=== PATIENT | male | born 1950 | race Caucasian/White ===

== ENCOUNTER 2024-06-22 08:53 | Outpatient (AMB) | payer MEDICARE, SELFPAY ==
--- NOTE | 2024-06-22 09:03 | MHC.PC.OV ---
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 Intake Note: new patient, med refill Allergies No Known Allergies Allergy (Verified 06/22/24 09:04) Medication List - Last Reconciled 06/22/24 by Lee Ann Benavidez PA-C aspirin (Adult Low Dose Aspirin) 81 mg PO DAILY carvedilol 12.5 mg PO BID 90 days cholecalciferol (vitamin D3) 25 mcg PO DAILY coenzyme Q10 (CoQ-10) 200 mg PO DAILY donepezil 5 mg PO DAILY finasteride mg PO gabapentin mg PO lisinopril 10 mg PO DAILY mecobalamin (vitamin B12) (B12 Active) 1,000 mcg PO DAILY rosuvastatin 20 mg PO BEDTIME tamsulosin 0.4 mg PO DAILY Tobacco use date assessed: 06/22/24 Fall risk assessment: 1 Fall in past year Last assessed Fall Risk: 06/22/24 Dental Screening Dental Screen Date: 06/22/24 Did you have a dental visit in the last 12 months?: Yes Did you have a dental problem in the last 6 months where you did not have access to dental care?: No Was dental information given to patient?: Patient has dentist HPI 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 He last saw Dr. Fernandes a year ago. No notes yet available. He states that he just signed a release yesterday. CV: Blood pressure today in the office is 110/60. He is on lisinopril 10 mg daily, carvedilol 12.5 mg twice a day. He takes a baby aspirin. Cholesterol is controlled with Crestor 20 mg. Takes Co Q10 as well which helps him tolerate statins. Follows with [facility] cardiology and had an echo this am to monitor the aneurysm. Appointment booked later this month. Neuro: On Aricept 5 mg daily. He states that he had testing but does not know who did the testing or where it was. He thinks Dr. Fernandes started on the aricept. He does feel that he is getting more forgetful. He is accompanied today by daughter. -he states this memory loss has been a gradual change. He can not tell me when it started. His brother was diagnosed with dementia. He still drives and lives alone. He is able to take his meds and sometimes forgets afternoon dosage. He is getting frustrated more easily with not remembering things from the last week or month. He states it is very hard to describe. He does not have a neurologist. Uro: On Flomax and finasteride for bph and follows with Dr. Triana. Musculoskeletal: Follows in [place] with Dr. Deal for lumbar pain. Trying gabapentin which is helpful. Colonoscopy: states it was done this last year and they told him not to come back. [facility] Medical History (Updated 06/22/24 @ 12:03 by Lee Ann Benavidez PA-C) High blood pressure Family History (Updated 06/22/24 @ 09:32 by Joan Herzog) Father Asthma High blood pressure Diabetes Cancer Mother Cancer Social History (Updated 06/22/24 @ 09:13 by Joan Herzog) [facility] Tobacco Use Status: Former Tobacco user e-Cigarette/Vaping Use: Never Used Second Hand Smoke Exposure: No service: No Current occupational status: retired Current occupational exposures/hazards: No Cognitive needs: No Hearing needs: Yes Vision needs: No Questionnaire Thrive Questionnaire Date Thrive assessed: 06/22/24 I am a: Patient What is your living situation today?: I have a steady place to live Within the past 12 months, did the food you bought not last and you didn't have the money to get more?: Never true Within the past 12 months, did you worry whether your food would run out before you got money to buy more?: Never true Do you have trouble paying for medicines?: No Do you have trouble getting transportation to medical appointments?: No Do you have trouble paying your heating and electricity bill?: No Do you have trouble taking care of your child, family member or friend?: No Do you have trouble with day-to-day activities such as bathing, preparing meals, shopping, managing finances, etc.?: No Are you currently unemployed and looking for a job?: No Are you interested in more education?: No Please select the resources that you would like help with: None Currently or been in a relationship where the following occur: No concerns reported THRIVE Score: 0 AUDIT C Alcohol Use Questionnaire (AUDIT-C) 1. How often do you have a drink containing alcohol?: 4 or more times a week 2. How many drinks containing alcohol do you have on a typical day when you are drinking?: 5 or 6 3. How often do you have six or more drinks on one occasion?: Monthly Total Score: 8 Score Reviewed/Action Taken: Yes Physical exam (Primary Care) Vital Signs: Last Vital Signs Temp 98.3 F 06/22/24 09:14 Pulse 88 06/22/24 09:14 Resp 20 06/22/24 09:14 BP 110/60 06/22/24 09:14 Pulse Ox 96 06/22/24 09:14 Oxygen Delivery Method Room Air 06/22/24 09:14 BMI result Body Mass Index 31.1 Tobacco/Smoking Status: Tobacco use Status Tobacco use date assessed 06/22/24 06/22/24 09:19 Patient Tobacco Use Status Former Tobacco user 06/22/24 09:19 e-Cigarette/Vaping Use Never Used 06/22/24 09:19 Thrive Assessment: Date of Thrive Assessment Date Thrive assessed 06/22/24 06/22/24 09:33 Currently or been in a relationship where the following occur: No concerns reported Const Orientation/consciousness: patient oriented x3 HENMT Ears: hearing grossly normal bilaterally Neck Thyroid: Thyroid normal Lymphatic: no lymphadenopathy noted Resp Auscultation: clear to auscultation bilaterally Cardio Rate: regular rate Rhythm: regular rhythm Heart sounds: S1 normal heart sound present and S2 normal heart sound present GI Inspection: Yes normal to inspection Palpation (GI): Soft to palpation and Other GI palpation findings present (nontender, no cva tenderness) Auscultation: normoactive bowel sounds Rectal Exam - Male: Yes deferred Skin General skin exam: no rashes or lesions noted Neuro General: patient oriented x3, gait normal and no focal motor deficits Assessment and Plan Assessment & Plan (1) Dementia: Code(s): F03.90 - Unspecified dementia, unspecified severity, without behavioral disturbance, psychotic disturbance, mood disturbance, and anxiety Qualifiers: Dementia type: unspecified type Dementia severity: mild Dementia behavioral or psychological symptom: unspecified whether behavioral, psychotic, or mood disturbance or anxiety Qualified Code(s): F03.A0 - Unspecified dementia, mild, without behavioral disturbance, psychotic disturbance, mood disturbance, and anxiety Plan: Referral to neurology. He [facility] to [facility] for his back and joints and would like to see them for Neurology. I have refilled the Aricept today. (2) High blood pressure: Code(s): I10 - Essential (primary) hypertension Qualifiers: Hypertension type: primary hypertension Qualified Code(s): I10 - Essential (primary) hypertension Plan: WNL. Continue current regimen. (3) Dyslipidemia: Code(s): E78.5 - Hyperlipidemia, unspecified Plan: We will check lipids and LFTs. Continue with the Crestor. (4) BPH (benign prostatic hyperplasia): Code(s): N40.0 - Benign prostatic hyperplasia without lower urinary tract symptoms Plan: I have encouraged him to get records from Dr. Triana office as well. Continue with current regimen. Plan Patient has requested records. We will follow up pending results. Advised to follow up in 3 months. Sooner if needed. Patient understands and agrees with the plan. Orders: Orders Comprehensive [place]. Panel Fast Today E78.5 - Hyperlipidemia, unspecified, F03.90 - Unspecified dementia, unspecified severity, without behavioral disturbance, psychotic disturbance, mood disturbance, and anxiety, I10 - Essential (primary) hypertension, N40.0 - Benign prostatic hyperplasia without lower urinary tract symptoms TSH reflex Free T4 Today E78.5 - Hyperlipidemia, unspecified, F03.90 - Unspecified dementia, unspecified severity, without behavioral disturbance, psychotic disturbance, mood disturbance, and anxiety, I10 - Essential (primary) hypertension, N40.0 - Benign prostatic hyperplasia without lower urinary tract symptoms Complete Blood Count Auto Diff Today E78.5 - Hyperlipidemia, unspecified, F03.90 - Unspecified dementia, unspecified severity, without behavioral disturbance, psychotic disturbance, mood disturbance, and anxiety, I10 - Essential (primary) hypertension, N40.0 - Benign prostatic hyperplasia without lower urinary tract symptoms Lipid Panel Today E78.5 - Hyperlipidemia, unspecified, F03.90 - Unspecified dementia, unspecified severity, without behavioral disturbance, psychotic disturbance, mood disturbance, and anxiety, I10 - Essential (primary) hypertension, N40.0 - Benign prostatic hyperplasia without lower urinary tract symptoms Referrals Neurology Referral F03.90 - Unspecified dementia, unspecified severity, without behavioral disturbance, psychotic disturbance, mood disturbance, and anxiety Medications: New donepezil 5 mg PO DAILY 90 tabs 3RF lisinopril 10 mg PO DAILY 90 tabs 3RF rosuvastatin 20 mg PO BEDTIME 90 tabs 3RF Refilled carvedilol 12.5 mg PO BID 180 tabs 3RF 90 days Coding Level of Care Code New Pt Level 4 (50016) Complex EM visit Add On G2211 Diagnoses Mild dementia, unspecified dementia type, unspecified whether behavioral, psychotic, or mood disturbance or anxiety F03.A0 Dementia type: unspecified type Dementia severity: mild Dementia behavioral or psychological symptom: unspecified whether behavioral, psychotic, or mood disturbance or anxiety Primary hypertension I10 Hypertension type: primary hypertension Dyslipidemia E78.5 BPH (benign prostatic hyperplasia) N40.0
[2024-06-22 09:14] VITALS: BP 110/60; PULSE 88; RESP 20; TEMP 36.8; O2SAT 96; BMI 31.1
== END 2024-06-22 10:05 | disposition home or self-care (01) ==
PROVIDERS: PCP Physician Assistant; Visit Provider Physician Assistant
DX: F03.A0 Unspecified dementia, mild, without behavioral disturbance, psychotic disturbance, mood disturbance, and anxiety (principal); I10 Essential (primary) hypertension; E78.5 Hyperlipidemia, unspecified; N40.0 Benign prostatic hyperplasia without lower urinary tract symptoms
CPT/HCPCS: 99204; G2211

== ENCOUNTER 2024-07-07 07:32 | Outpatient (REF) | payer MEDICARE, SELFPAY ==
[2024-07-07 09:58] LABS: MANUAL DIFF FLAG NO
[2024-07-07 10:06] LABS: Basophils Percent Auto 0.3 % (0-2); Eosinophils Absolute Auto 0.1 X10*3/uL (0.0-0.4); Eosinophils Percent Auto 1.9 % (0-4); Hematocrit 45.7 % (42.0-52.0); Hemoglobin 15.4 g/dl (14.0-18.0); Imm Gran Abs Auto 0.02 X10*3/uL (0.00-0.03); Imm Gran Pct Auto 0.3 % (0.0-0.4); Lymphocytes Absolute Auto 1.2 X10*3/uL (1.2-4.9); Lymphocytes Percent Auto 20.2 % (20-40); Mean Corpuscular HGB Conc 33.7 g/dl (31.0-36.0); Mean Corpuscular Hemoglobin 29.8 pg (27.0-33.0); Mean Corpuscular Volume 88.4 fL (80.0-98.0); Mean Platelet Volume 9.7 fL (9.4-12.4); Monocytes Absolute Auto 0.6 X10*3/uL (0.1-1.2); Monocytes Percent Auto 9.8 % (2-11); Neutrophils Percent Auto 67.5 % (45-73); Platelet Count 219 X10*3/uL (160-400); Red Blood Count 5.17 X10*6/uL (4.60-5.80); Red Cell Distribution Width 13.5 % (11.0-16.0); White Blood Count 5.9 X10*3/uL (4.8-10.8)
[2024-07-07 10:45] LABS: Alanine Aminotransferase 17 U/L (0-40); Albumin Level 4.1 g/dL (3.5-5.0); Alkaline Phosphatase 58 U/L (39-117); Anion Gap 9 (12-20); Aspartate Amino Transferase 18 U/L (5-37); Bilirubin Total 0.3 mg/dL (0.0-1.0); Blood Urea Nitrogen 6 mg/dL (9-16); Calcium 9.5 mg/dL (8.4-10.2); Carbon Dioxide 28 mmol/L (22-29); Chloride 107 mmol/L (96-108); Cholesterol 96 mg/dL (<200); Estimated Glomerular Filt Rate > 60; Glucose Fasting 91 mg/dL (60-99); HDL Cholesterol 46 mg/dL (>40); LDL Cholesterol Calculated 31 mg/dL (<100); Potassium 4.1 mmol/L (3.3-5.1); Sodium 140 mmol/L (135-145); Total Protein 7.3 g/dL (6.5-8.0); Triglycerides 97 mg/dL (<150)
[2024-07-07 10:50] LABS: TSH reflex Free T4 2.01 uIU/mL (0.32-4.0)
== END 2024-07-07 07:33 | disposition home or self-care (01) ==
LOC: HO.HMGCLDS 07:32
PROVIDERS: PCP Internal Medicine; Visit Provider Physician Assistant
DX: F03.90 Unspecified dementia, unspecified severity, without behavioral disturbance, psychotic disturbance, mood disturbance, and anxiety (principal); I10 Essential (primary) hypertension; E78.5 Hyperlipidemia, unspecified; N40.0 Benign prostatic hyperplasia without lower urinary tract symptoms
CPT/HCPCS: 36415; 80053; 80061; 84443; 85025

== ENCOUNTER 2024-09-27 08:40 | Outpatient (AMB) | payer MEDICARE, SELFPAY ==
--- NOTE | 2024-09-27 08:46 | A.OFFPC_ITS ---
Vital Signs 09/27/24 08:49 Height 5 ft 9.45 in Weight 211 lb 6 oz BMI 30.8 BP 134/58 L Blood Pressure Location Lt brachial Position Sitting Pulse 81 Pulse Source Pulse Oximeter Pulse Oximetry (%) 94 Oxygen Delivery Method Room Air Intake Visit Reasons: med changes Intake Note: Follow up medication changes. Jalousies Installer Required: No Allergies No Known Allergies Allergy (Verified 09/27/24 08:47) Medication List - Last Reconciled 09/27/24 by Lee Ann Benavidez PA-C aspirin (Adult Low Dose Aspirin) 81 mg PO DAILY carvedilol 12.5 mg PO BID 90 days cholecalciferol (vitamin D3) 25 mcg PO DAILY coenzyme Q10 (CoQ-10) 200 mg PO DAILY donepezil 5 mg PO DAILY finasteride mg PO gabapentin mg PO lisinopril 10 mg PO DAILY mecobalamin (vitamin B12) (B12 Active) 1,000 mcg PO DAILY rosuvastatin 20 mg PO BEDTIME tamsulosin 0.4 mg PO DAILY Tobacco use date assessed: 06/22/24 Dental Screening Dental Screen Date: 06/22/24 HPI med changes HPI Details Patient is a 74-year-old with a significant past medical history of dementia, ascending aortic aneurysm, hypertension, hyperlipidemia, BPH , vitamin-D deficiency and vitamin B12 deficiency presenting today for a follow up. CV: Blood pressure today in the office is 134/58. He is on lisinopril 10 mg daily, carvedilol 12.5 mg twice a day. He takes a baby aspirin. Cholesterol is controlled with Crestor 20 mg. Takes Co Q10 as well which helps him tolerate statins. Follows with [facility] cardiology and had an echo in June 2024 monitor the aneurysm. Neuro: On Aricept 5 mg daily. He states that he had testing by his PCP including labs, MRI and he thinks he had neuropsych testing. He thinks Dr. Fernandes started on the aricept. He does feel that he is getting more forgetful. He is accompanied today by daughter. He was referred at our last visit to Neurology. Uro: On Flomax and finasteride for bph and follows with Dr. Triana. Musculoskeletal: Follows in [place] with Dr. Deal for lumbar pain. Had a cortisone injection last week and it does feel somewhat better. Trying gabapentin which is helpful. He has recently experienced some neck pain mostly on the right side last 3 weeks. It has been on and off. He says that he can p ush on 1 particular area and relieve the pain. GI: For the last year he has had some loose stools. Denies any episodes of constipation. No rectal bleeding. Up-to-date on colonoscopy in January and [place] that they told him to not come back because it was normal. He has not tried anything for his diet or making any diet changes. He eats fast food every night for dinner because he does not like cook. He states that last night he had a double cheeseburger from [employer]. He does not know if this is triggering the looser stools. Denies any actual diarrhea. No recent antibiotic use. No recent travel. No weight loss. No abdominal pain. He states that his stool consistency has changed in that is his only concern. colonoscopy:02/07/24 [facility] Medical History (Updated 09/27/24 @ 11:34 by Lee Ann Benavidez PA-C) High blood pressure Family History Father Asthma High blood pressure Diabetes Cancer Mother Cancer Social History (Updated 09/27/24 @ 08:48 by Jessie Stratton CMA) [facility] Alcohol intake: current Patient Tobacco Use Status: Former Tobacco user e-Cigarette/Vaping Use: Never Used Second Hand Smoke Exposure: No service: No Current occupational status: retired Current occupational exposures/hazards: No Cognitive needs: No Hearing needs: Yes Vision needs: No Questionnaire PHQ-9 Over the last 2 weeks, how often have you been bothered by any of the following problems? 1. Little interest or pleasure in doing things: more than half the days 2. Feeling down, depressed, or hopeless: several days 3. Trouble falling or staying asleep, or sleeping too much: not at all 4. Feeling tired or having little energy: not at all 5. Poor appetite or overeating: not at all 6. Feeling bad about yourself - or that you are a failure or have let yourself or your family down: not at all 7. Trouble concentrating on things, such as reading the newspaper or watching television: not at all 8. Moving or speaking so slowly that other people could have noticed. Or the opposite - being so fidgety or restless that you have been moving around a lot more than usual: not at all 9. Thoughts that you would be better off or of hurting yourself in some way: not at all Total score: 3 Source: Developed by Drs. Sarabjit Ac, Susie Geiger, Tahir Clifford and colleagues, with an educational kevin from [employer]. Thrive Questionnaire Date Thrive assessed: 06/22/24 I am a: Patient What is your living situation today?: I have a steady place to live Within the past 12 months, did the food you bought not last and you didn't have the money to get more?: Never true Within the past 12 months, did you worry whether your food would run out before you got money to buy more?: Never true Do you have trouble paying for medicines?: No Do you have trouble getting transportation to medical appointments?: No Do you have trouble paying your heating and electricity bill?: No Do you have trouble taking care of your child, family member or friend?: No Do you have trouble with day-to-day activities such as bathing, preparing meals, shopping, managing finances, etc.?: No Are you currently unemployed and looking for a job?: No Are you interested in more education?: No Please select the resources that you would like help with: None Currently or been in a relationship where the following occur: No concerns reported THRIVE Score: 0 AUDIT C Alcohol Use Questionnaire (AUDIT-C) 1. How often do you have a drink containing alcohol?: 4 or more times a week 2. How many drinks containing alcohol do you have on a typical day when you are drinking?: 3 or 4 3. How often do you have six or more drinks on one occasion?: Monthly Total Score: 7 TUNDE-7 AMB Questionnaire TUNDE-7 Feeling nervous, anxious, or on edge: 0 = Not at all Not being able to stop or control worryin = Not at all Worrying too much about different things: 0 = Not at all Trouble relaxin = Not at all Being so restless that it is hard to sit still: 0 = Not at all Becoming easily annoyed or irritable: 0 = Not at all Feeling afraid as if something awful might happen: 0 = Not at all Total TUNDE-7 score (0-4 normal; 5-9 mild; 10-14 moderate; 15-21 severe): 0 Source: Developed by Drs. Sarabjit Ac, Susie Geiger, Tahir Clifford and colleagues, with an educational kevin from [employer]. Physical exam (Primary Care) Vital Signs: Last Vital Signs Pulse 81 09/27/24 08:49 BP 134/58 L 09/27/24 08:49 Pulse Ox 94 09/27/24 08:49 Oxygen Delivery Method Room Air 09/27/24 08:49 BMI result Body Mass Index 30.8 Tobacco/Smoking Status: Tobacco use Status Tobacco use date assessed 06/22/24 09/27/24 08:52 Patient Tobacco Use Status Former Tobacco user 09/27/24 08:52 e-Cigarette/Vaping Use Never Used 09/27/24 08:52 PHQ-9: PHQ-9 Score PHQ-9: Total score 3 09/27/24 09:16 Thrive Assessment: Date of Thrive Assessment Date Thrive assessed 06/22/24 09/27/24 08:52 Currently or been in a relationship where the following occur: No concerns reported Const Orientation/consciousness: patient oriented x3 HENMT Ears: hearing grossly normal bilaterally Neck Neck: Yes normal visual inspection Thyroid: Thyroid normal Lymphatic: no lymphadenopathy noted Resp Auscultation: clear to auscultation bilaterally Cardio Rate: regular rate Rhythm: regular rhythm Heart sounds: S1 normal heart sound present and S2 normal heart sound present GI Inspection: Yes normal to inspection Palpation (GI): Soft to palpation and Other GI palpation findings present (nontender, no cva tenderness) Auscultation: normoactive bowel sounds Rectal Exam - Male: Yes deferred Back/Spine/Pelvis Cervical Spine: cervical ROM normal, cervical muscular tenderness and cervical spasm (Of the right trapezius) Skin General skin exam: no rashes or lesions noted Neuro General: patient oriented x3, gait normal and no focal motor deficits Results Reviewed Results Reviewed: Laboratory Tests 07/07/24 07:38 WBC 5.9 RBC 5.17 Hgb 15.4 Hct 45.7 Plt Count 219 Sodium 140 Potassium 4.1 Chloride 107 Carbon Dioxide 28 Anion Gap 9 L BUN 6 L Creatinine 0.78 Estimated GFR > 60 Fasting Glucose 91 Calcium 9.5 Total Bilirubin 0.3 AST 18 ALT 17 Alkaline Phosphatase 58 Total Protein 7.3 Albumin 4.1 Triglycerides 97 Cholesterol 96 LDL Cholesterol, Calc 31 HDL Cholesterol 46 TSH 2.01 Coding Level of Care Code Est Pt Level 4 (36527) Complex EM visit Add On G2211 Diagnoses Primary hypertension I10 Hypertension type: primary hypertension Dyslipidemia E78.5 BPH (benign prostatic hyperplasia) N40.0 Lower urinary tract symptom presence: symptoms present Increased urinary frequency R35.0 Loose stools R19.5 Neck pain M54.2 Assessment & Plan Assessment & Plan (1) High blood pressure: Code(s): I10 - Essential (primary) hypertension Category: Medical Qualifiers: Hypertension type: primary hypertension Qualified Code(s): I10 - Essential (primary) hypertension Plan: Continue current regimen (2) Dyslipidemia: Code(s): E78.5 - Hyperlipidemia, unspecified Category: Medical Plan: Continue current regimen (3) BPH (benign prostatic hyperplasia): Code(s): N40.0 - Benign prostatic hyperplasia without lower urinary tract symptoms Category: Medical Qualifiers: Lower urinary tract symptom presence: symptoms present Plan: Has had some increased frequency over the last 6 months. Urine in kidney function ordered today. Advised patient to follow up with Dr. Triana. Has an appointment booked later this month but advised that he could call them. (4) Increased urinary frequency: Code(s): R35.0 - Frequency of micturition Category: Medical Plan: As above (5) Loose stools: Code(s): R19.5 - Other fecal abnormalities Category: Medical Plan: Stool studies ordered. Labs ordered. Advised to try a fiber supplement. Also advised to stop eating fried fast food every night. (6) Neck pain: Code(s): M54.2 - Cervicalgia Category: Medical Plan: X-ray ordered. Referral to physical therapy placed. Muscle relaxant ordered to use as needed. Advised to avoid drinking or driving while taking the muscle relaxant as it may cause sedation. Orders: Orders UA CC w/rflx Micro + Cult Today E78.5 - Hyperlipidemia, unspecified, I10 - Essential (primary) hypertension, N40.0 - Benign prostatic hyperplasia without lower urinary tract symptoms, R35.0 - Frequency of micturition, Z13.220 - Encounter for screening for lipoid disorders Comprehensive Met. Panel Today E78.5 - Hyperlipidemia, unspecified, I10 - Essential (primary) hypertension, N40.0 - Benign prostatic hyperplasia without lower urinary tract symptoms, R35.0 - Frequency of micturition OBSX3 Today E78.5 - Hyperlipidemia, unspecified, I10 - Essential (primary) hypertension, N40.0 - Benign prostatic hyperplasia without lower urinary tract symptoms, R35.0 - Frequency of micturition Transglutaminase Ab IgG Today R19.5 - Other fecal abnormalities Immunoglobulin A Today R19.5 - Other fecal abnormalities PT Evaluation and Treatment Today M54.2 - Cervicalgia TSH reflex Free T4 Today E78.5 - Hyperlipidemia, unspecified, I10 - Essential (primary) hypertension, N40.0 - Benign prostatic hyperplasia without lower urinary tract symptoms, R35.0 - Frequency of micturition Endomysial IgA rflx Titer Today R19.5 - Other fecal abnormalities XR cervical spine 3V Today M54.2 - Cervicalgia Medications: New cyclobenzaprine 10 mg PO BEDTIME 30 days PRN 30 tabs 0RF muscle spasm
[2024-09-27 08:49] VITALS: BP 134/58; PULSE 81; O2SAT 94; BMI 30.8
== END 2024-09-27 09:42 | disposition home or self-care (01) ==
LOC: HO.HMCFM 08:41
PROVIDERS: PCP Internal Medicine; Visit Provider Physician Assistant
DX: I10 Essential (primary) hypertension (principal); E78.5 Hyperlipidemia, unspecified; N40.0 Benign prostatic hyperplasia without lower urinary tract symptoms; R35.0 Frequency of micturition; R19.5 Other fecal abnormalities; M54.2 Cervicalgia

== ENCOUNTER → 2024-09-27 08:40 | Outpatient (BNVA) | payer MEDICARE, SELFPAY | PROVIDERS: PCP Internal Medicine; Visit Provider Physician Assistant | DX: I10 Essential (primary) hypertension (principal); E78.5 Hyperlipidemia, unspecified; N40.1 Benign prostatic hyperplasia with lower urinary tract symptoms; R35.0 Frequency of micturition; R19.5 Other fecal abnormalities; M54.2 Cervicalgia | CPT/HCPCS: 99212 ==

== ENCOUNTER 2024-09-27 09:51 | Outpatient (REF) | payer MEDICARE, SELFPAY ==
[2024-09-27 11:31] LABS: Appearance Urine Clear; Color Urine Yellow; Glucose Urine UA Negative (Negative); Leukocyte Esterase Urine Negative (Negative); Nitrite Urine Negative (Negative); PH 5.5 (5.0-9.0); Specific Gravity - Urine 1.015 (1.005-1.025); Urine Blood Negative (Negative); Urine Ketones Negative (Negative); Urine Protein Negative (Neg-Trace)
[2024-09-27 12:27] LABS: Alanine Aminotransferase 19 U/L (0-40); Albumin Level 4.1 g/dL (3.5-5.0); Alkaline Phosphatase 66 U/L (39-117); Anion Gap 10 (12-20); Aspartate Amino Transferase 29 U/L (5-37); Bilirubin Total 0.5 mg/dL (0.0-1.0); Blood Urea Nitrogen 12 mg/dL (9-16); Calcium 9.8 mg/dL (8.4-10.2); Carbon Dioxide 26 mmol/L (22-29); Chloride 103 mmol/L (96-108); Estimated Glomerular Filt Rate > 60; Glucose Random 101 mg/dL (60-115); Potassium 4.2 mmol/L (3.3-5.1); Sodium 135 mmol/L (135-145); Total Protein 7.4 g/dL (6.5-8.0)
[2024-09-27 12:32] LABS: TSH reflex Free T4 2.57 uIU/mL (0.32-4.0)
[2024-09-28 09:48] LABS: Immunoglobulin A 349 mg/dL (70-320)
[2024-09-28 20:24] LABS: Transglutaminase Ab IgG <1.0 U/mL
[2024-09-30 23:38] LABS: Endomysial IgA Antibody Negative (Negative)
== END 2024-09-27 09:52 | disposition home or self-care (01) ==
LOC: HO.WFDLDS 09:51
PROVIDERS: Visit Provider Physician Assistant
DX: I10 Essential (primary) hypertension (principal); E78.5 Hyperlipidemia, unspecified; N40.1 Benign prostatic hyperplasia with lower urinary tract symptoms; R35.0 Frequency of micturition; R19.5 Other fecal abnormalities; Z13.220 Encounter for screening for lipoid disorders
CPT/HCPCS: 36415; 80053; 81003; 82784; 84443; 86231; 86364; 99212

== ENCOUNTER 2024-09-29 11:05 | Outpatient (REF) | payer MEDICARE, SELFPAY | END 2024-09-29 11:06 | disposition home or self-care (01) | LOC: HO.HMGCX 11:05 | PROVIDERS: PCP Internal Medicine; Visit Provider Physician Assistant | DX: M54.2 Cervicalgia (principal) | CPT/HCPCS: 72040 ==

== ENCOUNTER 2024-11-13 10:00 | Outpatient (RCR) | payer MEDICARE, SELFPAY ==
--- NOTE | 2024-10-11 11:41 | MHC.PT.EP ---
[facility] [place] [facility] [place] [facility] [place] [facility] [address] D[address] [place] [address] [phone] F: [phone] F: [phone] F: [phone] F: [phone] Physical Therapy Plan of Care Date of Evaluation: 10/11/24 Date of Surgery: Diagnosis: This is a 74yo male presenting to skilled PT with a script for cervicalgia. Assessment: This is a 74yo male presenting to skilled PT with a script for cervicalgia. Patient reporting that he has had R sided neck and UT pain for about 3 months now. He did not have any injury that he notes. It has been on and off. Pain is stiffness. He does not recall positions that trigger it or make it feel better. He has been taking gabapentin for the symptoms. Denies FIGUEREDO's and dizziness. 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 Of note, he had shoulder surgery on the R in early 1999' but is unsure what it was. Also of note he is being followed in [place] with Dr. Deal for lumbar pain and had a cortisone injection recently. Assessment reveals pain that ranges from up to a 4/10 at the worst. Patient demos decreased cervical ROM, strength of B shoulder's (L is actually worse than the R), TTP at surrounding levator scap and UT's and impaired posture with increased trunk flexion, thoracic kyphosis, forward head and rounded shoulders. Based on functional limitations, impaired QOL and pain tolerance patient is a good candidate for skilled PT 2x/wk for 4wks. 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 Manual therapy to restore motion and function. Therapeutic exercise to improve strength and flexibility. Neuromuscular re-education for posture and balance. Therapeutic activities to return to functional activities of daily living. Electronically signed by: Karen Cedeno PT Please sign and return to therapist. Thank you for your referral.
== END 2024-12-15 08:26 | disposition home or self-care (01) ==
LOC: HO.PTCHIC 10:00
PROVIDERS: PCP Internal Medicine; Visit Provider Physician Assistant
DX: M54.2 Cervicalgia (principal)
CPT/HCPCS: 97014; 97110; 97140; 97162

== ENCOUNTER 2025-01-03 09:26 | Outpatient (AMB) | payer MEDICARE, SELFPAY ==
--- NOTE | 2025-01-03 09:35 | A.OFFPC_ITS ---
Vital Signs 01/03/25 09:37 Height 5 ft 9.45 in Weight 215 lb 4 oz BMI 31.4 BP 110/68 Blood Pressure Location Lt brachial Position Sitting Respiration 18 Pulse 87 Pulse Source Pulse Oximeter Pulse Oximetry (%) 93 Oxygen Delivery Method Room Air Intake Visit Reasons: bp labs Intake Note: Follow up htn Accompanied by: Son Allergies No Known Allergies Allergy (Verified 09/27/24 08:47) Medication List - Last Reconciled 01/03/25 by Lee Ann Benavidez PA-C aspirin (Adult Low Dose Aspirin) 81 mg PO DAILY carvedilol 12.5 mg PO BID 90 days cholecalciferol (vitamin D3) 25 mcg PO DAILY coenzyme Q10 (CoQ-10) 200 mg PO DAILY cyclobenzaprine 10 mg PO BEDTIME PRN 30 days donepezil 5 mg PO DAILY finasteride mg PO gabapentin mg PO lisinopril 10 mg PO DAILY mecobalamin (vitamin B12) (B12 Active) 1,000 mcg PO DAILY rosuvastatin 20 mg PO BEDTIME tamsulosin 0.4 mg PO DAILY Tobacco use date assessed: 01/03/25 Dental Screening Dental Screen Date: 06/22/24 HPI bp labs HPI Details History of Present Illness Patient is a 74-year-old with a significant past medical history of dementia, ascending aortic aneurysm, hypertension, hyperlipidemia, BPH , vitamin-D deficiency and vitamin B12 deficiency presenting today for a follow up. CV: Blood pressure today in the office is 110/68. He is on lisinopril 10 mg daily, carvedilol 12.5 mg twice a day. He takes a baby aspirin. Cholesterol is controlled with Crestor 20 mg. Takes Co Q10 as well which helps him tolerate statins. Follows with [facility] and had an echo in June 2024 monitor the aneurysm. Neuro: On Aricept 5 mg daily. He states that he is stable. No changes. His son is with him today and states that he is stable and sharp. -His son does state sometimes he is off balance getting up from sitting down and sometimes with walking. He did try PT for this and has not been doing the exercises. He does not want to back to PT. He does have a cane at home and refuses walker. He is ok with getting a bar in the shower and a possible seat. He states that he has not fallen in the shower/bathroom but has had a couple falls this year. No hitting of head. States he tripped. Uro: On Flomax and finasteride for bph and follows with Dr. Triana. Musculoskeletal: Follows in [place] with Dr. Deal for lumbar pain. Using gabapentin which is helpful. Last time I saw him he was experiencing some neck pain. He did do PT for this and found it helpful. Derm: He complains today of dry flaky skin. he denies associated pruritus. He expresses an interest in obtaining either a prescription-strength cream or an efficacious [id number] product. Lifestyle instructions were given regarding the application of thick, unscented creams post-shower for maximum hydration retention. 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 colonoscopy:02/07/24 Health Maintenance - Recommendation for installing home saf ety devices such as shower chairs and handles to prevent falls. - Discussion on potential need for physi elieser therapy was raised, though deemed unnecessary at present by the patient. - Suggested usage of rich, unscented emo llient for skin hydration post-shower. Social History - Resides with his son, who assists with daily activities and healthcare decisions. - Previous employment history involves p [employer]. - Patient reports independence in mobili ty with a preference for limited use of assistive devices like canes or walkers. Review of Systems - Neurological: Denies significant cogni tive decline, occasionally disoriented on time. - Dermatological: Reports persistent dry and flaky skin, denies itchiness or lesions. Physical Exam General: Well developed, well nourished, in no acute distress. Appears stated age. Cardiac: RRR, no murmurs Lungs: clear, equal breath sounds Abdomen: soft, nontender, no CVA tenderness Extremities: no edema Neuro: alert, oriented x3, mood appropriate, occasional unsteadiness noted. Plan - Continue current management for orthos tatic instability with advisement on potentially increasing use of the cane for support. - Ordered a shower chair and grab bars t o improve home safety and reduce fall risk. - Prescribed a topical moisturizing crea m for dry skin, with preference towards non-prescription emollients given potential insurance issues with prescription. - Monitor skin condition through follow- up dermatological assessments -Continue current medications. - Encourage continued exercise routine p rovided by physical therapy to aid balance. - Systematically check on all blood work to ensure consistency in health status as per previous tests. [facility] Medical History (Updated 01/03/25 @ 10:00 by Lee Ann Benavidez PA-C) High blood pressure Family History Father Asthma High blood pressure Diabetes Cancer Mother Cancer Social History (Updated 09/27/24 @ 08:48 by Jessie Stratton CMA) Housing: Condominium Alcohol intake: current Patient Tobacco Use Status: Former Tobacco user e-Cigarette/Vaping Use: Never Used Second Hand Smoke Exposure: No service: No Current occupational status: retired Current occupational exposures/hazards: No Cognitive needs: No Hearing needs: Yes Vision needs: No Questionnaire PHQ-9 Over the last 2 weeks, how often have you been bothered by any of the following problems? 1. Little interest or pleasure in doing things: not at all 2. Feeling down, depressed, or hopeless: not at all 3. Trouble falling or staying asleep, or sleeping too much: not at all 4. Feeling tired or having little energy: not at all 5. Poor appetite or overeating: not at all 6. Feeling bad about yourself - or that you are a failure or have let yourself or your family down: not at all 7. Trouble concentrating on things, such as reading the newspaper or watching television: not at all 8. Moving or speaking so slowly that other people could have noticed. Or the opposite - being so fidgety or restless that you have been moving around a lot more than usual: not at all 9. Thoughts that you would be better off or of hurting yourself in some way: not at all Total score: 0 Depression Screening Interpretation: Negative Depression Screening Done: Yes 69652 - PHQ-9 Billing: Yes Source: Developed by Drs. Sarabjit Ac, Susie Geiger, Tahir Clifford and colleagues, with an educational kevin from [employer]. Thrive Questionnaire Date Thrive assessed: 06/22/24 I am a: Patient What is your living situation today?: I have a steady place to live Within the past 12 months, did the food you bought not last and you didn't have the money to get more?: Never true Within the past 12 months, did you worry whether your food would run out before you got money to buy more?: Never true Do you have trouble paying for medicines?: No Do you have trouble getting transportation to medical appointments?: No Do you have trouble paying your heating and electricity bill?: No Do you have trouble taking care of your child, family member or friend?: No Do you have trouble with day-to-day activities such as bathing, preparing meals, shopping, managing finances, etc.?: No Are you currently unemployed and looking for a job?: No Are you interested in more education?: No Please select the resources that you would like help with: None Currently or been in a relationship where the following occur: No concerns reported THRIVE Score: 0 AUDIT C Alcohol Use Questionnaire (AUDIT-C) 1. How often do you have a drink containing alcohol?: 2-4 times a month 2. How many drinks containing alcohol do you have on a typical day when you are drinking?: 3 or 4 3. How often do you have six or more drinks on one occasion?: Never Total Score: 3 TUNDE-7 AMB Questionnaire TUNDE-7 Feeling nervous, anxious, or on edge: 0 = Not at all Not being able to stop or control worryin = Not at all Worrying too much about different things: 0 = Not at all Trouble relaxin = Not at all Being so restless that it is hard to sit still: 0 = Not at all Becoming easily annoyed or irritable: 0 = Not at all Feeling afraid as if something awful might happen: 0 = Not at all Total TUNDE-7 score (0-4 normal; 5-9 mild; 10-14 moderate; 15-21 severe): 0 Source: Developed by Drs. Sarabjit Ac, Susie Geiger, Tahir Clifford and colleagues, with an educational kevin from [employer]. TUNDE-7 Assessment Billing TUNDE-7 Assessment Tool: TUNDE-7 Assessment 83057 Physical exam (Primary Care) Vital Signs: Last Vital Signs Pulse 87 01/03/25 09:37 Resp 18 01/03/25 09:37 BP 110/68 01/03/25 09:37 Pulse Ox 93 01/03/25 09:37 Oxygen Delivery Method Room Air 01/03/25 09:37 BMI result Body Mass Index 31.4 Tobacco/Smoking Status: Tobacco use Status Tobacco use date assessed 01/03/25 01/03/25 09:40 Patient Tobacco Use Status Former Tobacco user 01/03/25 09:40 e-Cigarette/Vaping Use Never Used 01/03/25 09:40 Depression Screening Interpretation: Negative Thrive Assessment: Date of Thrive Assessment Date Thrive assessed 06/22/24 01/03/25 09:40 Currently or been in a relationship where the following occur: No concerns reported Results Reviewed Results Reviewed: XR/XR cervical spine 3V IMPRESSION: Moderate degenerative disc disease at C6-C7 and mild degenerative disc disease at C4-C5 and C5-C6. Prominent facet arthrosis. Laboratory Tests 07/07/24 09/27/24 09/27/24 07:38 09:54 10:04 WBC 5.9 RBC 5.17 Hgb 15.4 Hct 45.7 Plt Count 219 Estimated GFR > 60 Random Glucose 101 Calcium 9.8 Total Bilirubin 0.5 AST 29 ALT 19 Alkaline Phosphatase 66 Albumin 4.1 Triglycerides 97 Cholesterol 96 LDL Cholesterol, Calc 31 HDL Cholesterol 46 TSH 2.57 Urine Color Yellow Urine Appearance Clear Urine pH 5.5 Ur Specific [place] 1.015 Urine Protein Negative Urine Glucose (UA) Negative Urine Blood Negative Coding Level of Care Code Est Pt Level 4 (49862) Complex EM visit Add On G2211 Diagnoses Balance disorder R26.89 Primary hypertension I10 Hypertension type: primary hypertension Mild dementia, unspecified dementia type, unspecified whether behavioral, psychotic, or mood disturbance or anxiety F03.A0 Dementia behavioral or psychological symptom: unspecified whether behavioral, psychotic, or mood disturbance or anxiety Dementia severity: mild Dementia type: unspecified type Dyslipidemia E78.5 Additional Codes PHQ-9 - 96267 - PHQ-9 Billing: Yes ([id number]) TUNDE-7 Assessment Billing - TUNDE-7 Assessment Tool: TUNDE-7 Assessment 07697 ([id number]) Assessment & Plan Assessment & Plan (1) Balance disorder: Code(s): R26.89 - Other abnormalities of gait and mobility Category: Medical Plan: Has had physical therapy for this and has a elicit stretches to do at home and exercises. States that he just needs to get some motivation. Does not live alone and states that he follows very infrequently. In the past year he has fallen once or twice and it has been mechanical falls. Shower bar and chair ordered today. (2) High blood pressure: Code(s): I10 - Essential (primary) hypertension Category: Medical Qualifiers: Hypertension type: primary hypertension Qualified Code(s): I10 - Essential (primary) hypertension Plan: WNL. Continue current regimen (3) Dementia: Code(s): F03.90 - Unspecified dementia, unspecified severity, without behavioral disturbance, psychotic disturbance, mood disturbance, and anxiety Category: Medical Qualifiers: Dementia behavioral or psychological symptom: unspecified whether behavioral, psychotic, or mood disturbance or anxiety Dementia severity: mild Dementia type: unspecified type Qualified Code(s): F03.A0 - Unspecified dementia, mild, without behavioral disturbance, psychotic disturbance, mood disturbance, and anxiety Plan: Stable. Son feels that he is still very sharp. (4) Dyslipidemia: Code(s): E78.5 - Hyperlipidemia, unspecified Category: Medical Plan: Well-controlled. Continue current regimen. Orders: Orders Complete Blood Count Auto Diff Today E78.5 - Hyperlipidemia, unspecified, F03.A0 - Unspecified dementia, mild, without behavioral disturbance, psychotic disturbance, mood disturbance, and anxiety, I10 - Essential (primary) hypertension, R26.89 - Other abnormalities of gait and mobility TSH reflex Free T4 Today E78.5 - Hyperlipidemia, unspecified, F03.A0 - Unspecified dementia, mild, without behavioral disturbance, psychotic disturbance, mood disturbance, and anxiety, I10 - Essential (primary) hypertension, R26.89 - Other abnormalities of gait and mobility Comprehensive Met. Panel Today E78.5 - Hyperlipidemia, unspecified, F03.A0 - Unspecified dementia, mild, without behavioral disturbance, psychotic disturba nce, mood disturbance, and anxiety, I10 - Essential (primary) hypertension, R26.89 - Other abnormalities of gait and mobility Vitamin B12 and Folate Today E78.5 - Hyperlipidemia, unspecified, F03.A0 - Unspecified dementia, mild, without behavioral disturbance, psychotic disturbance, mood disturbance, and anxiety, I10 - Essential (primary) hypertension, R26.89 - Other abnormalities of gait and mobility Magnesium Today E78.5 - Hyperlipidemia, unspecified, F03.A0 - Unspecified dementia, mild, without behavioral disturbance, psychotic disturbance, mood disturbance, and anxiety, I10 - Essential (primary) hypertension, R26.89 - Other abnormalities of gait and mobility Medications: New miscellaneous medical supply Use daily As directed 1 ea 0RF R26.89 - Other abnormalities of gait and mobility, R29.6 - Repeated falls ammonium lactate 12% 1 appl topical BID PRN 385 grams 3RF dry skin miscellaneous medical supply 1 shower bar Use daily As directed 1 ea 0RF R26.89 - Other abnormalities of gait and mobility, R29.6 - Repeated falls miscellaneous medical supply 1 shower safety chair use daily As directed 1 ea 0RF R26.89 - Other abnormalities of gait and mobility
[2025-01-03 09:37] VITALS: BP 110/68; PULSE 87; RESP 18; O2SAT 93; BMI 31.4
== END 2025-01-03 10:13 | disposition home or self-care (01) ==
PROVIDERS: PCP Physician Assistant; Visit Provider Physician Assistant
DX: R26.89 Other abnormalities of gait and mobility (principal); I10 Essential (primary) hypertension; F03.A0 Unspecified dementia, mild, without behavioral disturbance, psychotic disturbance, mood disturbance, and anxiety; E78.5 Hyperlipidemia, unspecified

== ENCOUNTER → 2025-01-03 09:26 | Outpatient (BNVA) | payer MEDICARE, SELFPAY | PROVIDERS: PCP Physician Assistant; Visit Provider Physician Assistant | DX: R26.89 Other abnormalities of gait and mobility (principal); I10 Essential (primary) hypertension; F03.A0 Unspecified dementia, mild, without behavioral disturbance, psychotic disturbance, mood disturbance, and anxiety; E78.5 Hyperlipidemia, unspecified | CPT/HCPCS: 96127; 99212 ==

== ENCOUNTER 2025-02-09 09:37 | Outpatient (REF) | payer MEDICARE, SELFPAY ==
[2025-02-09 13:31] LABS: B Type Natriuretic Peptide 214 pg/mL (<100)
[2025-02-09 14:07] LABS: Anion Gap 13 (12-20); Blood Urea Nitrogen 6 mg/dL (9-16); Calcium 9.4 mg/dL (8.4-10.2); Carbon Dioxide 23 mmol/L (22-29); Chloride 106 mmol/L (96-108); Estimated Glomerular Filt Rate > 60; Glucose Random 102 mg/dL (60-115); Potassium 4.1 mmol/L (3.3-5.1); Sodium 138 mmol/L (135-145)
== END 2025-02-09 09:38 | disposition home or self-care (01) ==
LOC: HO.HMGCLDS 09:37
PROVIDERS: PCP Physician Assistant; Visit Provider Internal Medicine Cardiovascular Disease
DX: I42.0 Dilated cardiomyopathy (principal)
CPT/HCPCS: 36415; 80048; 83880

== ENCOUNTER 2025-05-09 08:35 | Outpatient (AMB) | payer MEDICARE, SELFPAY ==
--- NOTE | 2025-05-09 08:43 | MHC.PC.OV ---
Vital Signs 05/09/25 08:49 Height 5 ft 9.45 in Weight 206 lb BMI 30.0 BP 110/62 Blood Pressure Location Lt brachial Position Sitting Respiration 14 Pulse 75 Pulse Source Pulse Oximeter Pulse Oximetry (%) 95 Oxygen Delivery Method Room Air Intake Visit Reasons: labs and meds Intake Note: Lab results and medication review. Will be starting Enstresto and Eplerenone once received from the mail. Allergies No Known Allergies Allergy (Verified 05/09/25 08:43) Medication List - Last Reconciled 05/09/25 by Lee Ann Benavidez PA-C ammonium lactate 12% 1 appl topical BID PRN aspirin (Adult Low Dose Aspirin) 81 mg PO DAILY carvedilol 12.5 mg PO BID 90 days cholecalciferol (vitamin D3) 25 mcg PO DAILY coenzyme Q10 (CoQ-10) 200 mg PO DAILY cyclobenzaprine 10 mg PO BEDTIME PRN 30 days donepezil 5 mg PO DAILY eplerenone 25 mg PO DAILY finasteride mg PO gabapentin mg PO BID mecobalamin (vitamin B12) (B12 Active) 1,000 mcg PO DAILY miscellaneous medical supply 1 shower bar Use daily As directed miscellaneous medical supply 1 shower safety chair use daily As directed rosuvastatin 20 mg PO BEDTIME sacubitril-valsartan 24-26 mg (Entresto) 1 tab PO BID tamsulosin 0.4 mg PO DAILY Tobacco use date assessed: 05/09/25 Fall risk assessment: 2 + Falls in past year Last assessed Fall Risk: 05/09/25 Dental Screening Dental Screen Date: 05/09/25 Did you have a dental visit in the last 12 months?: Yes Did you have a dental problem in the last 6 months where you did not have access to dental care?: No Was dental information given to patient?: Patient has dentist HPI labs and meds HPI Details Patient is a 75-year-old with a significant past medical history of dementia, ascending aortic aneurysm, hypertension, hyperlipidemia, BPH , vitamin-D deficiency and vitamin B12 deficiency presenting today for a follow up. CV: Blood pressure today in the office is 110/62. He is on lisinopril 10 mg daily, carvedilol 12.5 mg twice a day. He states that he was recently switched from lisinopril to Entresto and told to start eplerenone however, he has not yet received meds from mail order pharmacy and has an appointment with cardiology tomorrow. He takes a baby aspirin. Cholesterol is controlled with Crestor 20 mg. Takes Co Q10 as well which helps him tolerate statins. Follows with [facility] cardiology. Neuro: On Aricept 5 mg daily. He states that he is stable. No changes. He never followed with [facility] for a 2nd opinion. They will call today because his daughter does want him to see a neurologist for this. Uro: On Flomax and finasteride for bph and follows with Dr. Triana. Musculoskeletal: Follows in [place] with Dr. Deal for lumbar pain. Using gabapentin which is helpful. Last time I saw him he was experiencing some neck pain. He did do PT for this and found it helpful. 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 colonoscopy:02/07/24 [facility] Medical History (Updated 01/03/25 @ 10:00 by Lee Ann Benavidez PA-C) High blood pressure Family History Father Asthma High blood pressure Diabetes Cancer Mother Cancer Social History (Updated 09/27/24 @ 08:48 by Jessie Stratton CMA) Housing: Condominium Alcohol intake: current Patient Tobacco Use Status: Former Tobacco user e-Cigarette/Vaping Use: Never Used Second Hand Smoke Exposure: No service: No Current occupational status: retired Current occupational exposures/hazards: No Cognitive needs: No Hearing needs: Yes Vision needs: No Questionnaire PHQ-9 Over the last 2 weeks, how often have you been bothered by any of the following problems? 1. Little interest or pleasure in doing things: not at all 2. Feeling down, depressed, or hopeless: not at all 3. Trouble falling or staying asleep, or sleeping too much: not at all 4. Feeling tired or having little energy: not at all 5. Poor appetite or overeating: not at all 6. Feeling bad about yourself - or that you are a failure or have let yourself or your family down: not at all 7. Trouble concentrating on things, such as reading the newspaper or watching television: not at all 8. Moving or speaking so slowly that other people could have noticed. Or the opposite - being so fidgety or restless that you have been moving around a lot more than usual: not at all 9. Thoughts that you would be better off or of hurting yourself in some way: not at all Total score: 0 Depression Screening Interpretation: Negative Depression Screening Done: Yes 20855 - PHQ-9 Billing: Yes Source: Developed by Susie Gupta Kurt Kroenke and colleagues, with an educational kevin from [employer]. Thrive Questionnaire Date Thrive assessed: 01/03/25 I am a: Patient What is your living situation today?: I have a steady place to live Within the past 12 months, did the food you bought not last and you didn't have the money to get more?: Never true Within the past 12 months, did you worry whether your food would run out before you got money to buy more?: Never true Do you have trouble paying for medicines?: No Do you have trouble getting transportation to medical appointments?: No Do you have trouble paying your heating and electricity bill?: No Do you have trouble taking care of your child, family member or friend?: No Do you have trouble with day-to-day activities such as bathing, preparing meals, shopping, managing finances, etc.?: No Are you currently unemployed and looking for a job?: No Are you interested in more education?: No Please select the resources that you would like help with: None Currently or been in a relationship where the following occur: No concerns reported THRIVE Score: 0 TUNDE-7 AMB Questionnaire TUNDE-7 Date TUNDE - 7 assessed: 05/09/25 Feeling nervous, anxious, or on edge: 0 = Not at all Not being able to stop or control worryin = Not at all Worrying too much about different things: 0 = Not at all Trouble relaxin = Not at all Being so restless that it is hard to sit still: 0 = Not at all Becoming easily annoyed or irritable: 0 = Not at all Feeling afraid as if something awful might happen: 0 = Not at all Total TUNDE-7 score (0-4 normal; 5-9 mild; 10-14 moderate; 15-21 severe): 0 Source: Developed by Susie Gupta Kurt Kroenke and colleagues, with an educational kevin from [employer]. TUNDE-7 Assessment Billing TUNDE-7 Assessment Tool: TUNDE-7 Assessment 41710 Physical exam (Primary Care) Tobacco/Smoking Status: Tobacco use Status Tobacco use date assessed 01/03/25 01/03/25 09:40 Patient Tobacco Use Status Former Tobacco user 01/03/25 09:40 e-Cigarette/Vaping Use Never Used 01/03/25 09:40 Depression Screening Interpretation: Negative Thrive Assessment: Date of Thrive Assessment Date Thrive assessed 01/03/25 05/09/25 08:36 Currently or been in a relationship where the following occur: No concerns reported Const Orientation/consciousness: patient oriented x3 HENMT Ears: hearing grossly normal bilaterally Neck Thyroid: Thyroid normal Lymphatic: no lymphadenopathy noted Resp Auscultation: clear to auscultation bilaterally Cardio Rate: regular rate Rhythm: regular rhythm Heart sounds: S1 normal heart sound present and S2 normal heart sound present GI Inspection: Yes normal to inspection Palpation (GI): Soft to palpation and Other GI palpation findings present (nontender, no cva tenderness) Auscultation: normoactive bowel sounds Rectal Exam - Male: Yes deferred Skin General skin exam: no rashes or lesions noted Neuro General: patient oriented x3, gait normal and no focal motor deficits Results Reviewed Results Reviewed: Laboratory Tests 07/07/24 02/09/25 07:38 10:00 Estimated GFR > 60 Random Glucose 102 Triglycerides 97 Cholesterol 96 LDL Cholesterol, Calc 31 HDL Cholesterol 46 XR/XR cervical spine 3V IMPRESSION: Moderate degenerative disc disease at C6-C7 and mild degenerative disc disease at C4-C5 and C5-C6. Prominent facet arthrosis. Coding Level of Care Code Est Pt Level 4 (36996) Complex EM visit Add On G2211 Diagnoses Primary hypertension I10 Hypertension type: primary hypertension Dyslipidemia E78.5 Mild dementia, unspecified dementia type, unspecified whether behavioral, psychotic, or mood disturbance or anxiety F03.A0 Dementia behavioral or psychological symptom: unspecified whether behavioral, psychotic, or mood disturbance or anxiety Dementia severity: mild Dementia type: unspecified type BPH (benign prostatic hyperplasia) N40.0 Lower urinary tract symptom presence: symptoms present Additional Codes TUNDE-7 Assessment Billing - TUNDE-7 Assessment Tool: TUNDE-7 Assessment 09039 ([id number]) PHQ-9 - 11431 - PHQ-9 Billing: Yes ([id number]) Assessment & Plan Assessment & Plan (1) High blood pressure: Code(s): I10 - Essential (primary) hypertension Category: Medical Qualifiers: Hypertension type: primary hypertension Qualified Code(s): I10 - Essential (primary) hypertension Plan: Blood pressure well-controlled. Continue current regimen as implemented by Cardiology (2) Dyslipidemia: Code(s): E78.5 - Hyperlipidemia, unspecified Category: Medical Plan: We will continue to monitor. States that he just had this done and his cholesterol was at goal per Cardiology.. (3) Dementia: Code(s): F03.90 - Unspecified dementia, unspecified severity, without behavioral disturbance, psychotic disturbance, mood disturbance, and anxiety Category: Medical Qualifiers: Dementia behavioral or psychological symptom: unspecified whether behavioral, psychotic, or mood disturbance or anxiety Dementia severity: mild Dementia type: unspecified type Qualified Code(s): F03.A0 - Unspecified dementia, mild, without behavioral disturbance, psychotic disturbance, mood disturbance, and anxiety Plan: Stable. Continue Aricept. (4) BPH (benign prostatic hyperplasia): Code(s): N40.0 - Benign prostatic hyperplasia without lower urinary tract symptoms Category: Medical Qualifiers: Lower urinary tract symptom presence: symptoms present Plan: Labs ordered. We will follow up pending test results. Continue current regimen. Orders: Orders Lipid Panel Today E78.5 - Hyperlipidemia, unspecified Prostate Specific Antigen Scr Today E78.5 - Hyperlipidemia, unspecified, I10 - Essential (primary) hypertension, N40.0 - Benign prostatic hyperplasia without lower urinary tract symptoms, Z01.89 - Encounter for other specified special examinations Medications: New tamsulosin 0.4 mg PO DAILY 90 caps 3RF Changed From finasteride PO To finasteride 5 mg PO DAILY 90 tabs 3RF Refilled donepezil 5 mg PO DAILY 90 tabs 3RF rosuvastatin 20 mg PO BEDTIME 90 tabs 3RF
[2025-05-09 08:49] VITALS: BP 110/62; PULSE 75; RESP 14; O2SAT 95
== END 2025-05-09 09:19 | disposition home or self-care (01) ==
LOC: HO.HMCFM 08:36
PROVIDERS: PCP Physician Assistant; Visit Provider Physician Assistant
DX: I10 Essential (primary) hypertension (principal); E78.5 Hyperlipidemia, unspecified; F03.A0 Unspecified dementia, mild, without behavioral disturbance, psychotic disturbance, mood disturbance, and anxiety; N40.0 Benign prostatic hyperplasia without lower urinary tract symptoms

== ENCOUNTER → 2025-05-09 08:35 | Outpatient (BNVA) | payer MEDICARE, SELFPAY | PROVIDERS: PCP Physician Assistant; Visit Provider Physician Assistant | DX: I10 Essential (primary) hypertension (principal); E78.5 Hyperlipidemia, unspecified; F03.A0 Unspecified dementia, mild, without behavioral disturbance, psychotic disturbance, mood disturbance, and anxiety; N40.0 Benign prostatic hyperplasia without lower urinary tract symptoms | CPT/HCPCS: 96127; 99212 ==

== ENCOUNTER 2025-05-15 08:05 | Outpatient (REF) | payer MEDICARE, SELFPAY ==
[2025-05-15 10:06] LABS: MANUAL DIFF FLAG NO
[2025-05-15 10:13] LABS: Basophils Percent Auto 0.3 % (0-2); Eosinophils Absolute Auto 0.2 X10*3/uL (0.0-0.4); Eosinophils Percent Auto 2.2 % (0-4); Hematocrit 48.1 % (42.0-52.0); Hemoglobin 15.9 g/dl (14.0-18.0); Imm Gran Abs Auto 0.03 X10*3/uL (0.00-0.03); Imm Gran Pct Auto 0.4 % (0.0-0.4); Lymphocytes Absolute Auto 1.3 X10*3/uL (1.2-4.9); Lymphocytes Percent Auto 19.6 % (20-40); Mean Corpuscular HGB Conc 33.1 g/dl (31.0-36.0); Mean Corpuscular Hemoglobin 29.3 pg (27.0-33.0); Mean Corpuscular Volume 88.6 fL (80.0-98.0); Mean Platelet Volume 9.7 fL (9.4-12.4); Monocytes Absolute Auto 0.7 X10*3/uL (0.1-1.2); Monocytes Percent Auto 10.5 % (2-11); Neutrophils Absolute Auto 4.6 x10*3/uL (2.0-8.3); Platelet Count 232 X10*3/uL (160-400); Red Blood Count 5.43 X10*6/uL (4.60-5.80); Red Cell Distribution Width 14.2 % (11.0-16.0); White Blood Count 6.9 X10*3/uL (4.8-10.8)
[2025-05-15 10:42] LABS: Alanine Aminotransferase 20 U/L (0-40); Albumin Level 4.5 g/dL (3.5-5.0); Alkaline Phosphatase 61 U/L (39-117); Anion Gap 11 (12-20); Aspartate Amino Transferase 29 U/L (5-37); Bilirubin Total 0.6 mg/dL (0.0-1.0); Blood Urea Nitrogen 8 mg/dL (9-16); Calcium 9.8 mg/dL (8.4-10.2); Carbon Dioxide 26 mmol/L (22-29); Chloride 106 mmol/L (96-108); Cholesterol 108 mg/dL (<200); Estimated Glomerular Filt Rate > 60; Glucose Random 117 mg/dL (60-115); HDL Cholesterol 52 mg/dL (>40); LDL Cholesterol Calculated 44 mg/dL (<100); Magnesium 2.2 mg/dL (1.6-2.6); Potassium 4.5 mmol/L (3.3-5.1); Sodium 138 mmol/L (135-145); TSH reflex Free T4 2.11 uIU/mL (0.32-4.0); Total Protein 7.4 g/dL (6.5-8.0); Triglycerides 60 mg/dL (<150)
[2025-05-15 10:58] LABS: Folate 7.8 ng/mL (> or = 4.0); Prostate Specific Antigen Scr 1.66 ng/mL (<0.05-4.0); Vitamin B12 290 pg/mL (200-900)
[2025-05-18 16:59] LABS: Estimated Average Glucose 120 mg/dL; Hemoglobin A1c % 5.8 % (<6.0)
== END 2025-05-15 08:06 | disposition home or self-care (01) ==
LOC: HO.HMGCLDS 08:05
PROVIDERS: PCP Physician Assistant; Visit Provider Physician Assistant
DX: R26.89 Other abnormalities of gait and mobility (principal); F03.A0 Unspecified dementia, mild, without behavioral disturbance, psychotic disturbance, mood disturbance, and anxiety; E78.5 Hyperlipidemia, unspecified; I10 Essential (primary) hypertension; Z01.89 Encounter for other specified special examinations; N40.0 Benign prostatic hyperplasia without lower urinary tract symptoms; R73.01 Impaired fasting glucose; Z12.5 Encounter for screening for malignant neoplasm of prostate
CPT/HCPCS: 36415; 80053; 80061; 82607; 82746; 83036; 83735; 84153; 84443; 85025

== ENCOUNTER 2025-06-28 13:10 | Outpatient (AMB) | payer MEDICARE, SELFPAY ==
[2025-06-28 13:13] VITALS: BP 140/60; PULSE 73; O2SAT 93; BMI 30.8
--- NOTE | 2025-06-28 13:13 | A.OFFVIS_ITS ---
Vital Signs 06/28/25 13:13 Height 5 ft 9.45 in Weight 211 lb 10.3 oz BMI 30.8 BP 140/60 H Blood Pressure Location Lt brachial Position Sitting Pulse 73 Pulse Oximetry (%) 93 Oxygen Delivery Method Room Air Intake Visit Reasons: Dyspnea / PFT results Transplant Coordinator Required: No Allergies No Known Allergies Allergy (Verified 06/28/25 13:16) HPI Comments Details: The patient is here for pulmonary evaluation. The patient is here with the son. He is a 75-year-old gentleman with known history of cardiomyopathy, dementia and chronic cough. The patient did have a workup at [facility]. He did undergo a cardiopulmonary exercise tolerance test in 2024. It demonstrated that indeed his exercise limitations were primarily due to a pulmonary origin. His respiratory reserve was decreased. He also has spirometry demonstrating a moderate obstruction based on the spirometry although I do not have the results to review. I do not see any formal pulmonary function studies available. Right now she is not using any inhalers. He denies needing any inhalers either. He is not interested in pursuing any prescription inhalers at this time. He does have a cough which was times productive in nature and sometimes difficult to expectorate. He did have a CT scan of the chest sometime done in 2023 which I personally reviewed at [facility]. It appears he does have some degree of mild emphysema. Evidence of chronic bronchitis. In addition to that he did have some air-fluid level within the esophagus suggesting the possibility of reflux and bringing up the question of micro aspirations. Therefore we did talk about the reflux diet and making sure that he sleeps elevated. As far as his chest congestion in likely chronic bronchitis the patient will benefit from a an Acapella valve for CPT. At this point will hold off any inhalers. Will plan to do formal pulmonary function studies and follow-up in the fall of 2024. If any issues arise he will call for further recommendations. [facility] Medical History (Updated 07/01/25 @ 22:16 by Thomas Billings MD) Cardiomyopathy COPD (chronic obstructive pulmonary disease) Dyspnea High blood pressure Family History Father Asthma High blood pressure Diabetes Cancer Mother Cancer Social History Housing: Condominium Alcohol intake: current Patient Tobacco Use Status: Former Tobacco user e-Cigarette/Vaping Use: Never Used Second Hand Smoke Exposure: No service: No Current occupational status: retired Current occupational exposures/hazards: No Cognitive needs: No Hearing needs: Yes Vision needs: No Review of Systems Const Denies fever(s) Eyes Reports no additional complaints ENT Reports no additional complaints Card Reports as per HPI and Reports dyspnea on exertion Resp Reports dyspnea on exertion GI Reports no additional complaints Musc Reports myalgias Skin/Breast Denies rash Neuro Reports no additional complaints Reymundo/Lymph Reports no additional complaints Aller/Immun Reports no additional complaints Physical Exam Vital Signs: Last Vital Signs Pulse 73 06/28/25 13:13 BP 140/60 H 06/28/25 13:13 Pulse Ox 93 06/28/25 13:13 Oxygen Delivery Method Room Air 06/28/25 13:13 BMI result Body Mass Index 30.8 Const General: comfortable HEENT Head: Yes normocephalic Neck Neck: Yes supple Chest Chest palpation & inspection: normal inspection of the chest Resp Effort & Inspection: normal respiratory effort Auscultation: diminished lung sounds Cardio Heart sounds: S1 normal heart sound present and S2 normal heart sound present GI Palpation (GI): Soft to palpation Skin General skin exam: no rashes or lesions noted Extrem General: Yes no clubbing, cyanosis or edema Assessment & Plan Assessment & Plan (1) Dyspnea: Code(s): R06.00 - Dyspnea, unspecified Category: Medical Qualifiers: Dyspnea type: dyspnea on exertion Qualified Code(s): R06.09 - Other forms of dyspnea (2) COPD (chronic obstructive pulmonary disease): Code(s): J44.9 - Chronic obstructive pulmonary disease, unspecified Category: Medical Qualifiers: COPD type: chronic bronchitis Chronic bronchitis type: mixed simple and mucopurulent Qualified Code(s): J41.8 - Mixed simple and mucopurulent chronic bronchitis (3) Cardiomyopathy: Code(s): I42.9 - Cardiomyopathy, unspecified Category: Medical Qualifiers: Cardiomyopathy type: unspecified Qualified Code(s): I42.9 - Cardiomyopathy, unspecified Plan PFTs Acapella valve for CPT Consider Pulmonary rehab declined inhalers at this time Orders: Orders PFT pulmonary function test Today J41.8 - Mixed simple and mucopurulent chronic bronchitis Coding Level of Care Code New Pt Level 4 (11212) Diagnoses Dyspnea on exertion R06.09 Dyspnea type: dyspnea on exertion Mixed simple and mucopurulent chronic bronchitis J41.8 COPD type: chronic bronchitis Chronic bronchitis type: mixed simple and mucopurulent Cardiomyopathy, unspecified type I42.9 Cardiomyopathy type: unspecified Time Spent (min) 40
--- OUTSIDE RECORDS SUMMARY | 2025-06-28 13:15 | XMS_ITS | Encounter Summary ---
Author Organization [facility] Address [facility] [address] [place] [phone] Phone Care Team Providers Care Mammal Control Agent Name Role Phone Gurwinder Meadows MD Primary Care Provider [phone] Queenie Pimentel MD Primary Care Provider Encounter Details Date Type Department Care Team (Late st Contact Info) Description 04/05/2024 Procedure Pass [address] [address] Social History Tobacco Use Types Packs/Day Years Used Date Smoking Tobacco: Former Cigarettes 1 35 0 03/04/1969 - 03/04/2004 Smokeless Tobacco: Never Alcohol Use Standard Drinks/Week Comments Yes 5 (1 standard drink = 0.6 oz pure alcohol) used to drink heavier up until 2016, no detox, no blackouts Education Answer Date Recorded Are you interested in more education? Not on ervin e 03/20/2023 Are you concerned about learning? Not on file 03/20/2023 No 03/20/2023 No 03/20/2023 Digital Access Answer Date Recorded No 04/18/2023 No 04/18/2023 Reliable internet access at home? Not on file 04/18/2023 Device with a working camera? Not on file Sex and Gender Information Value Date Recorded Sex Assigned at Not on file Legal Sex Male 6:48 PM EST Gender Identity Not on file Sexual Orientation Not on file documented as of this encounter Plan of Treatment Not on file documented as of this encounter Visit Diagnoses Not on filedocumented in this encounter Care Teams Mammal Control Agent Relationship Specialty Start Date End Date Gurwinder Meadows MD PCP - General Internal Medicine 08/12/17 08/03/24 Queenie Pimentel MD PCP - General Internal Medicine 08/04/24 documented as of this encounter Additional Source Comments The information contained in this document represents components of the legal health record. It is not the complete legal health record.[facility]
== END 2025-06-28 13:43 | disposition home or self-care (01) ==
LOC: HO.HPS 13:11
PROVIDERS: PCP Physician Assistant; Visit Provider Hospitalist
DX: R06.09 Other forms of dyspnea (principal); J41.8 Mixed simple and mucopurulent chronic bronchitis; I42.9 Cardiomyopathy, unspecified
CPT/HCPCS: 99204

== ENCOUNTER → 2025-06-28 13:10 | Outpatient (BNVA) | payer MEDICARE, SELFPAY | PROVIDERS: PCP Physician Assistant; Visit Provider Hospitalist | DX: R06.09 Other forms of dyspnea (principal); J41.8 Mixed simple and mucopurulent chronic bronchitis; I42.9 Cardiomyopathy, unspecified | CPT/HCPCS: 99202 ==

== ENCOUNTER 2025-08-16 08:00 | Outpatient (AMB) | payer MEDICARE, SELFPAY ==
--- NOTE | 2025-08-16 08:04 | MHC.PC.OV ---
Vital Signs 08/16/25 08:07 Height 5 ft 9.45 in Weight 205 lb 8 oz BMI 30.0 BP 138/78 Blood Pressure Location Rt brachial Position Sitting Respiration 14 Pulse 92 Pulse Source Pulse Oximeter Temp 98.6 F Temp Source Oral Pulse Oximetry (%) 96 Oxygen Delivery Method Room Air Intake Visit Reasons: htn dyslipidemia 30 min hosp f/u Intake Note: Follow up Cost Analyst Required: No Allergies No Known Allergies Allergy (Verified 08/16/25 08:08) Tobacco use date assessed: 08/16/25 Fall risk assessment: No Falls in past year Last assessed Fall Risk: 08/16/25 Dental Screening Dental Screen Date: 05/09/25 HPI htn dyslipidemia 30 min hosp f/u HPI Details Patient is a 75-year-old with a significant past medical history of dementia, ascending aortic aneurysm, hypertension, hyperlipidemia, BPH , vitamin-D deficiency and vitamin B12 deficiency presenting today for a follow up. CV: Blood pressure today in the office is 138/78 He is on carvedilol 12.5 mg twice a day, Entresto and recently started on eplerenone. He is being followed by [facility] cardiology. He takes a baby aspirin. Cholesterol is controlled with Crestor 20 mg. Takes Co Q10 as well which helps him tolerate statins. Pulm: recently saw pulmnology for COPD. He is doing very well with this regimen Neuro: On Aricept 5 mg daily. He states that he is stable. No changes. He never followed with [facility] for a 2nd opinion. They will call today because his daughter does want him to see a neurologist for this. Uro: On Flomax and finasteride for bph and follows with Dr. Triana. Musculoskeletal: Follows with Dr. Deal in [place] for lumbar pain. He is having a procedure soon for his back. Using gabapentin which is helpful. Last time I saw him he was experiencing some neck pain. He did do PT for this and found it helpful. 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 colonoscopy:02/07/24 [facility] Medical History (Updated 08/16/25 @ 08:13 by Lee Ann Benavidez PA-C) Cardiomyopathy COPD (chronic obstructive pulmonary disease) Dyspnea High blood pressure Family History Father Asthma High blood pressure Diabetes Cancer Mother Cancer Social History Housing: Condominium Alcohol intake: current Patient Tobacco Use Status: Former Tobacco user e-Cigarette/Vaping Use: Never Used Second Hand Smoke Exposure: No service: No Current occupational status: retired Current occupational exposures/hazards: No Cognitive needs: No Hearing needs: Yes Vision needs: No Questionnaire Thrive Questionnaire Date Thrive assessed: 01/03/25 I am a: Patient What is your living situation today?: I have a steady place to live Within the past 12 months, did the food you bought not last and you didn't have the money to get more?: Never true Within the past 12 months, did you worry whether your food would run out before you got money to buy more?: Never true Do you have trouble paying for medicines?: No Do you have trouble getting transportation to medical appointments?: No Do you have trouble paying your heating and electricity bill?: No Do you have trouble taking care of your child, family member or friend?: No Do you have trouble with day-to-day activities such as bathing, preparing meals, shopping, managing finances, etc.?: No Are you currently unemployed and looking for a job?: No Are you interested in more education?: No Please select the resources that you would like help with: None Currently or been in a relationship where the following occur: No concerns reported THRIVE Score: 0 TUNDE-7 AMB Questionnaire TUNDE-7 Date TUNDE - 7 assessed: 05/09/25 Source: Developed by Drs. Sarabjit Ac, Susie Geiger, Tahir Clifford and colleagues, with an educational kevin from [employer]. Physical exam (Primary Care) Vital Signs: Last Vital Signs Temp 98.6 F 08/16/25 08:07 Pulse 92 08/16/25 08:07 Resp 14 08/16/25 08:07 BP 138/78 08/16/25 08:07 Pulse Ox 96 08/16/25 08:07 Oxygen Delivery Method Room Air 08/16/25 08:07 BMI result Body Mass Index 30.0 Tobacco/Smoking Status: Tobacco use Status Tobacco use date assessed 08/16/25 08/16/25 08:13 Patient Tobacco Use Status Former Tobacco user 08/16/25 08:05 e-Cigarette/Vaping Use Never Used 08/16/25 08:05 Thrive Assessment: Date of Thrive Assessment Date Thrive assessed 01/03/25 08/16/25 08:05 Currently or been in a relationship where the following occur: No concerns reported Const Orientation/consciousness: patient oriented x3 HENMT Ears: hearing grossly normal bilaterally Neck Thyroid: Thyroid normal Lymphatic: no lymphadenopathy noted Resp Auscultation: clear to auscultation bilaterally Cardio Rate: regular rate Rhythm: regular rhythm Heart sounds: S1 normal heart sound present and S2 normal heart sound present GI Inspection: Yes normal to inspection Palpation (GI): Soft to palpation and Other GI palpation findings present (nontender, no cva tenderness) Auscultation: normoactive bowel sounds Rectal Exam - Male: Yes deferred Skin General skin exam: no rashes or lesions noted Neuro General: patient oriented x3, gait normal and no focal motor deficits Results Reviewed Results Reviewed: Laboratory Tests 05/15/25 08:24 WBC 6.9 RBC 5.43 Hgb 15.9 Hct 48.1 Plt Count 232 Sodium 138 Potassium 4.5 Chloride 106 Carbon Dioxide 26 Anion Gap 11 L BUN 8 L Creatinine 0.68 Estimated GFR > 60 Random Glucose 117 H Hemoglobin A1c % 5.8 AST 29 ALT 20 Alkaline Phosphatase 61 Total Protein 7.4 Albumin 4.5 Triglycerides 60 Cholesterol 108 LDL Cholesterol, Calc 44 HDL Cholesterol 52 PSA Screen 1.66 Vitamin B12 290 Folate 7.8 TSH 2.11 Coding Level of Care Code Est Pt Level 4 (67093) Complex EM visit Add On G2211 Diagnoses Primary hypertension I10 Hypertension type: primary hypertension Cardiomyopathy, unspecified type I42.9 Cardiomyopathy type: unspecified Dyslipidemia E78.5 Mixed simple and mucopurulent chronic bronchitis J41.8 COPD type: chronic bronchitis Chronic bronchitis type: mixed simple and mucopurulent Prediabetes R73.03 Assessment & Plan Assessment & Plan (1) High blood pressure: Code(s): I10 - Essential (primary) hypertension Category: Medical Qualifiers: Hypertension type: primary hypertension Qualified Code(s): I10 - Essential (primary) hypertension Plan: wnl continue current plan (2) Cardiomyopathy: Code(s): I42.9 - Cardiomyopathy, unspecified Category: Medical Qualifiers: Cardiomyopathy type: unspecified Qualified Code(s): I42.9 - Cardiomyopathy, unspecified Plan: stable follows w/ cards (3) Dyslipidemia: Code(s): E78.5 - Hyperlipidemia, unspecified Category: Medical Plan: at goal will monitor continue statin (4) COPD (chronic obstructive pulmonary disease): Code(s): J44.9 - Chronic obstructive pulmonary disease, unspecified Category: Medical Qualifiers: COPD type: chronic bronchitis Chronic bronchitis type: mixed simple and mucopurulent Qualified Code(s): J41.8 - Mixed simple and mucopurulent chronic bronchitis Plan: well controlled (5) Prediabetes: Code(s): R73.03 - Prediabetes Category: Medical Plan: a1c stable will monitor continue diet changes Orders: Orders Comprehensive [place]. Panel Fast Today E78.5 - Hyperlipidemia, unspecified, I10 - Essential (primary) hypertension, I42.9 - Cardiomyopathy, unspecified, J41.8 - Mixed simple and mucopurulent chronic bronchitis, R73.03 - Prediabetes Complete Blood Count Auto Diff Today E78.5 - Hyperlipidemia, unspecified, I10 - Essential (primary) hypertension, I42.9 - Cardiomyopathy, unspecified, J41.8 - Mixed simple and mucopurulent chronic bronchitis, R73.03 - Prediabetes Lipid Panel Today E78.5 - Hyperlipidemia, unspecified, I10 - Essential (primary) hypertension, I42.9 - Cardiomyopathy, unspecified, J41.8 - Mixed simple and mucopurulent chronic bronchitis, R73.03 - Prediabetes Microalbumin, Random (w Creat) Today E78.5 - Hyperlipidemia, unspecified, I10 - Essential (primary) hypertension, I42.9 - Cardiomyopathy, unspecified, J41.8 - Mixed simple and mucopurulent chronic bronchitis, R73.03 - Prediabetes Hemoglobin A1c Today E78.5 - Hyperlipidemia, unspecified, I10 - Essential (primary) hypertension, I42.9 - Cardiomyopathy, unspecified, J41.8 - Mixed simple and mucopurulent chronic bronchitis, R73.01 - Impaired fasting glucose, R73.03 - Prediabetes TSH reflex Free T4 Today E78.5 - Hyperlipidemia, unspecified, I10 - Essential (primary) hypertension, I42.9 - Cardiomyopathy, unspecified, J41.8 - Mixed simple and mucopurulent chronic bronchitis, R73.03 - Prediabetes UA CC w/rflx Micro + Cult Today E78.5 - Hyperlipidemia, unspecified, I10 - Essential (primary) hypertension, I42.9 - Cardiomyopathy, unspecified, J41.8 - Mixed simple and mucopurulent chronic bronchitis, R30.0 - Dysuria, R73.03 - Prediabetes Medications: New mupirocin calcium 2% 1 appl topical BID 30 grams 0RF 10 days
[2025-08-16 08:07] VITALS: BP 138/78; PULSE 92; RESP 14; TEMP 37; O2SAT 96
--- OUTSIDE RECORDS SUMMARY | 2025-08-16 08:07 | XMS_ITS | Clinical Summary ---
Author Organization [facility] Address [facility] [employer] [facility] [address] [place] [address] Phone Care Team Providers Care Senior Quality Analyst Name Role Phone Queenie Pimentel MD Primary Care Provider Allergies No known active allergies Medications rosuvastatin (CRESTOR) 20 MG tablet Take 20 mg by mouth daily. Active aspirin 81 mg chewable tablet Take 81 mg by mouth daily. Active cholecalciferol (VITAMIN D3) 1,000 unit tablet Take 1,000 Units by mouth daily. Active coenzyme Q10 100 mg capsule Take 100 mg by mouth daily. Active carvedilol (COREG) 6.25 MG tablet Take 6.25 mg by mouth 2 (two) times a day with meals. Active sacubitril-vals mariia (SACUBITRIL-LISETH SARTAN) 49-51 mg per tablet Take 1 tablet by mouth 2 (two) times a day. Active gabapentin (NEURONTIN) 300 MG capsule Take 1 capsule (300 mg total) by mouth 2 (two) times a day. 180 capsule 3 05/18/2024 Active Active Problems Problem Noted Date Diagnosed Date Status post total left knee replacement 08/04/20 17 Osteoarthritis of left knee 08/03/2017 Osteoarthritis of right knee 06/29/2017 Osteoarthritis, knee 06/29/2017 Family History Medical History Relation Comments Arthritis Brother shoulder surgery Multiple sclerosis Daughter Lung cancer Father + smoking histor y Breast cancer Mother Arthritis Sister s/p hip replacem ent Relation Status Comments Brother Alive Daughter Alive Father (Age 80) Mother (Age 69) Sister Alive Social History Tobacco Use Types Packs/Day Years Used Date Smoking Tobacco: Former Cigarettes 1 35 0 03/04/1969 - 03/04/2004 Smokeless Tobacco: Never Tobacco Cessation:Counseling Given: Not Answered Alcohol Use Standard Drinks/Week Comments Yes 5 [...] on file Sexual Orientation Not on file Last Filed Vital Signs Vital Sign Reading Time Taken Comments Blood Pressure 164/81 03/07/2025 10:34 AM EDT Pulse 83 03/07/2025 10:34 AM EDT Temperature 36.4 C (97.6 F) 03/07/2025 9:58 AM EDT Respiratory Rate 16 12/06/2024 10:49 AM EST Oxygen Saturation 94% 03/07/2025 10:33 AM EDT Inhaled Oxygen Concentration - - Weight 93 kg (205 lb) 03/07/2025 9:58 AM EDT Height 177.8 cm (5' 10 ) 03/07/2025 9:58 AM EDT Body Mass Index 29.41 03/07/2025 9:58 AM EDT Plan of Treatment Upcoming Encounters Date Type Department Care Team (Late st Contact Info) Description 08/28/2025 3:40 PM EDT Telemedicine [facility] [place] Physical Medicine and Rehabilitation [address], [address] [place] [address] Krissy Deal MD [address] [place], [place] [id number] [email or web address] Maintenance Due Date Last Done Comments Adult Td,Tdap Booster 1950 LIPID PANEL 1950 HEPATITIS C SCREENING 1967 ZOSTER VACCINES (2 of 3) 05/31/2013 04/05/2013 DEPRESSION SCREENING 08/24/2020 08/24/2019 RSV VACCINE (1 - 1-dose 75+ series) 02/20/2024 INFLUENZA VACCINE (#1) 2025 3, 09/22/2021, 07/15/2020, Additional history exists COVID-19 VACCINE ( season) 2025 10/12/2023, 04/23/2021, 03/21/2021 PNEUMOCOCCAL VACCINES (50+ years) Completed 06/08/2023, 08/09/2018 SMOKING STATUS SCREENING (Once After 26 Yrs) Completed 03/07/2025 HEPATITIS A VACCINES Aged Out No long er eligible based on patient's age to complete this topic HIB VACCINES Aged Out No longer eligi ble based on patient's age to complete this topic MENINGOCOCCAL VACCINES (ACWY) Aged Out No longer eligible based on patient's age to complete this topic MENINGOCOCCAL VACCINES (B) Aged Out N o longer eligible based on patient's age to complete this topic Medical Devices Implanted Type Area Steward/Stewardess Smoke Room Device Identifier Shelf Expiration Date Model / Serial / Lot System Tkr Cruciate Retaining Right I-Total Knee 26 - [id number] Implanted:Qty: 1 on 06/29/2017 by Servando Garcia MD at [facility] STANDARD Right: Knee [employer] 05/21/2018 [id number] / / [id number] Cement Bone Radiopaque Full Dose Simplex P Bx/10ea - [id number] Implanted:Qty: 2 on 06/29/2017 by Servando Garcia MD at [facility] STANDARD Right: Knee [employer] 11/21/2019 6191-1-01 0 / / [id number] Description:mixed with Vanco 2 gm powder Right knee Knee Patella I Total 38mm Knee 06 - [id number] Implanted:Qty: 1 on 06/29/2017 by Servando Garcia MD at [facility] STANDARD Right: Knee [employer]FORMIS 05/21/2018 [id number] 070 / / [id number] System Tkr Cruciate Retaining Left I-Total Knee 26 - [id number] Implanted:Qty: 1 on 08/03/2017 by Servando Garcia MD at [facility] STANDARD Left: Knee [employer]IS 12/22/2017 [id number] / [id number] / Description:lateral insert A . Medial insert 6mm. Patella 38mm. Knee Patella I Total 38mm Knee 06 - [id number] Implanted:Qty: 1 on 08/03/2017 by Servando Garcia MD at [facility] STANDARD Left: Patella [employer]IS 06/21/2018 [id number] / / [id number] C[employer] Bone Simplex P Full Dose Bx/1ea - [id number] Implanted:Qty: 2 on 08/03/2017 by Servando Garcia MD at [facility] Left: Knee [employer] 12/22/2019 6191-1-00 / [id number] Description:mixed with 2gram s vancomycin [place] [id number] [facility] MEDICARE SUPPLEMENT [employer] MEDICARE SUPPLEMENT MEDICARE PART A & B [facility] MEDICARE SUPPLEMENT [employer] MEDICARE SUPPLEMENT * Guarantor: Sagar Uribe Account Type Relation to Patient Date of Phone Billing Address Personal/Family Self 1950 [address] [place] [id number] MED[place] PART A [place] [id number] [facility] MEDICARE SUPPLEMENT MEDICARE PART A & B [facility] MEDICARE SUPPLEMENT MEDICARE PART A & B [facility] MEDICARE SUPPLEMENT [employer] MEDICARE SUPPLEMENT MEDICARE PART A & B [facility] MEDICARE SUPPLEMENT [facility] MEDICARE SUPPLEMENT MEDICARE PART A & B [facility] MEDICARE SUPPLEMENT [facility] MEDICARE SUPPLEMENT MEDICARE PART A & B MEDICARE SUPPLEMENT MEDICARE PART A & B [facility] MEDICARE SUPPLEMENT [facility] MEDICARE SUPPLEMENT Advance Directives For more information, please contact: [phone] (9AM - 5PM Ivonne/[facility], Wednesday-Wednesday) Documents on File Type Date Recorded Patient W[facility] Consultant Expl anation Healthcare Proxy 06/29/2017 8:37 AM * Full Code (Confirmed) (Latest Code Status on File) Date Activated Date Inactivated Comments 08/04/2017 11:59 AM 08/04/2017 2:26 PM Question Answer Comments Code Discussion Comments: patient * Full Code (Presumed) Date Activated Date Inactivated Comments 08/03/2017 1:36 PM 08/04/2017 11:59 AM * Full Code (Presumed) Date Activated Date Inactivated Comments 06/29/2017 2:59 PM 06/30/2017 5:13 PM Care Teams Senior Quality Analyst Relationship Specialty Start Date End Date Queenie Pimentel MD PCP - General Internal Medicine 08/04/24 Additional Source Comments The information contained in this document represents components of the legal health record. It is not the complete legal health record.[facility]
--- OUTSIDE RECORDS SUMMARY | 2025-08-16 08:07 | XMS_ITS | Encounter Summary ---
Author Organization [facility] Address Formerly [facility] [employer] [facility] [address] [place] [address] Phone Care Team Providers Care Booster Pump Oiler Name Role Phone Gurwinder Meadows MD Primary Care Provider [phone] Gurwinder Meadows MD Primary Care Provider +- [phone] Queenie Pimentel MD Primary Care Provider Encounter Details Date Type Department Care Team (Late Contact Info) Description 08/03/2017 Procedure Pass [facility] Periop 6th floor [address] [place] [address] Social History Tobacco Use Types Packs/Day Years Used Date Smoking Tobacco: Former Cigarettes 1 35 0 03/04/1969 - 03/04/2004 Smokeless Tobacco: Never Alcohol Use Standard Drinks/Week Comments Yes 5 (1 standard drink = 0.6 oz pure alcohol) used to drink heavier up until 2016, no detox, no blackouts Sex and Gender Information Value Date Recorded Sex Assigned at Not on file Legal Sex Male 6:48 PM EST Gender Identity Not on file Sexual Orientation Not on file documented as of this encounter Plan of Treatment Upcoming Encounters Date Type Department Care Team ([facility] Contact Info) Description 08/28/2025 3:40 PM EDT Telemedicine [facility] [place] and [place] [address] [facility], [address] [place] [address] Krissy Deal MD [address] [place] [id number] [email or web address] documented as of this encounter Visit Diagnoses Not on filedocumented in this encounter Care Teams Booster Pump Oiler Relationship Specialty Start Date End Date Gurwinder Meadows MD PCP - General Internal Medicine 10/09/16 08/11/17 Gurwinder Meadows MD PCP - General Internal Medicine 08/12/17 08/03/24 Queenie Pimentel MD PCP - General Internal Medicine 08/04/24 documented as of this encounter Additional Source Comments The information contained in this document represents components of the legal health record. It is not the complete legal health record.[facility]
--- OUTSIDE RECORDS SUMMARY | 2025-08-16 08:07 | XMS_ITS | Encounter Summary ---
Author Organization [facility] Address [facility] [employer] [facility] [address] [place] [address] Phone Care Team Providers Care Oil Field Technician Name Role Phone Gurwinder Meadows MD Primary Care Provider [phone]- [phone] Gurwinder Meadows MD Primary Care Provider +- [phone] Queenie Pimentel MD Primary Care Provider [phone] Encounter Details Date Type Department Care Team (Late Contact Info) Description 06/29/2017 Procedure Pass BWF Periop 6th floor [address] [place] [address] Social History Tobacco Use Types Packs/Day Years [...] Upcoming Encounters Date Type Department Care Team ([facility] Contact Info) Description 08/28/2025 3:40 PM EDT Telemedicine [facility] [place] Physical Medicine and Rehabilitation [address] [facility], [address] [place] [address] Krissy Deal MD [address] [place] [id number] [email or web address] documented as of this encounter Visit Diagnoses Not on filedocumented in this encounter Care Teams Oil Field Technician Relationship Specialty Start Date End Date Gurwinder Meadows MD PCP - General Internal Medicine 10/09/16 08/11/17 Gurwinder Meadows MD PCP - General Internal Medicine 08/12/17 08/03/24 Queenie Pimentel MD PCP - General Internal Medicine 08/04/24 documented as of this encounter Additional Source Comments The information contained in this document represents components of the legal health record. It is not the complete legal health record.[facility]
--- OUTSIDE RECORDS SUMMARY | 2025-08-16 08:07 | XMS_ITS | Encounter Summary ---
Author Organization [facility] Address [facility] [employer] [facility] [address] [place] [address] Phone Care Team Providers Care Academic Computing Director Name Role Phone Gurwinder Meadows MD Primary Care Provider +- [phone] Gurwinder Meadows MD Primary Care Provider +- [phone] Queenie Pimentel MD Primary Care Provider [phone] Encounter Details Date Type Department Care Team (Late st Contact Info) Description 03/04/2017 Procedure Pass [facility] [address] [facility] [address] [place] [address] Social History Tobacco Use Types Packs/Day Years Used Date Smoking Tobacco: Former Cigarettes Q uit: 03/04/2004 Sex and Gender Information Value Date Recorded Sex Assigned at Not on file Legal Sex Male 6:48 PM EST Gender Identity Not on file Sexual Orientation Not on file documented as of this encounter Plan of Treatment Upcoming Encounters Date Type Department Care Team (Late st Contact Info) Description 08/28/2025 3:40 PM EDT Telemedicine [facility] [place] Physical Medicine and Rehabilitation [address] [facility], [address] [place] [address] Krissy Deal MD [address] [address] [email or web address] documented as of this encounter Visit Diagnoses Not on filedocumented in this encounter Care Teams Academic Computing Director Relationship Specialty Start Date End Date Gurwinder Meadows MD PCP - General Internal Medicine 10/09/16 08/11/17 Gurwinder Meadows MD PCP - General Internal Medicine 08/12/17 08/03/24 Queenie Pimentel MD PCP - General Internal Medicine 08/04/24 documented as of this encounter Additional Source Comments The information contained in this document represents components of the legal health record. It is not the complete legal health record.[facility]
--- OUTSIDE RECORDS SUMMARY | 2025-08-16 08:07 | XMS_ITS | Encounter Summary ---
Author Organization [facility] Address [facility] [address] [place] [address] Phone Care Team Providers Care Microsoft Dynamics Consultant Name Role Phone Gurwinder Meadows MD Primary Care Provider [phone]- [phone] Queenie Pimentel MD Primary Care Provider [phone] Encounter Details Date Type Department Care Team (Late st Contact Info) Description 04/05/2024 Procedure Pass [address] [address] Social History Tobacco Use Types Packs/Day Years [...] Info) Description 08/28/2025 3:40 PM EDT Telemedicine [facility] [place] Medicine and Rehabilitation [address] [facility], [address] [place] [address] Krissy Deal MD [address] [place] [id number] [email or web address] documented as of this encounter Visit Diagnoses Not on filedocumented in this encounter Care Teams Microsoft Dynamics Consultant Relationship Specialty Start Date End Date Gurwinder Meadows MD PCP - General Internal Medicine 08/12/17 08/03/24 Queenie Pimentel MD PCP - General Internal Medicine 08/04/24 documented as of this encounter Additional Source Comments The information contained in this document represents components of the legal health record. It is not the complete legal health record.[facility]
--- OUTSIDE RECORDS SUMMARY | 2025-08-16 08:08 | XMS_ITS | Encounter Summary ---
Author Organization [facility] Address [facility] [address] [place] [address] Phone Care Team Providers Care Head Charger Name Role Phone Gurwinder Meadows MD Primary Care Provider +1- [phone] Gurwinder Meadows MD Primary Care Provider +- [phone] Queenie Pimentel MD Primary Care Provider Encounter Details Date Type Department Care Team (Late Contact Info) Description 05/07/2017 Procedure Pass [facility] [address] [place] [address] Social History Tobacco Use Types Packs/Day Years [...] Upcoming Encounters Date Type Department Care Team ([facility] Contact Info) Description 08/28/2025 3:40 PM EDT Telemedicine [facility] [address] [facility], [address] [place] [address] Krissy Deal MD [address] [place] [id number] [email or web address] documented as of this encounter Visit Diagnoses Not on filedocumented in this encounter Care Teams Head Charger Relationship Specialty Start Date End Date Gurwinder [...]
== END 2025-08-16 08:25 | disposition home or self-care (01) ==
LOC: HO.HMCFM 08:01
PROVIDERS: PCP Physician Assistant; Visit Provider Physician Assistant
DX: I10 Essential (primary) hypertension (principal); I42.9 Cardiomyopathy, unspecified; E78.5 Hyperlipidemia, unspecified; J41.8 Mixed simple and mucopurulent chronic bronchitis; R73.03 Prediabetes

== ENCOUNTER → 2025-08-16 08:00 | Outpatient (BNVA) | payer MEDICARE, SELFPAY | PROVIDERS: PCP Physician Assistant; Visit Provider Physician Assistant | DX: I10 Essential (primary) hypertension (principal); E78.5 Hyperlipidemia, unspecified; I42.9 Cardiomyopathy, unspecified; J41.8 Mixed simple and mucopurulent chronic bronchitis; R73.03 Prediabetes | CPT/HCPCS: 99212 ==

== ENCOUNTER 2025-09-04 08:07 | Outpatient (REF) | payer MEDICARE, SELFPAY ==
--- OUTSIDE RECORDS SUMMARY | 2025-09-04 08:13 | XMS_ITS | Encounter Summary ---
Author Organization [facility] Address [facility] [employer] [facility] [address] [place] [address] Phone Care Team Providers Care Cyber Analyst Name Role Phone Gurwinder Meadows MD Primary Care Provider +- [phone] Gurwinder Meadows MD Primary Care Provider + [phone] Queenie Pimentel MD Primary Care Provider +1- [phone] Encounter Details Date Type Department Care Team (Late st Contact Info) Description 06/29/2017 Procedure Pass [facility] Periop 6th floor [address] [place] [address] Social History Tobacco Use Types Packs/Day Years [...] on filedocumented in this encounter Care Teams Cyber Analyst Relationship Specialty Start Date End Date Gurwinder Meadows MD PCP - General Internal Medicine 10/09/16 08/11/17 Gurwinder Meadows MD PCP - General Internal Medicine 08/12/17 08/03/24 Queenie Pimentel MD PCP - General Internal Medicine 08/04/24 documented as of this encounter Additional Source Comments The information contained in this document represents components of the legal health record. It is not the complete legal health record.[facility]
--- OUTSIDE RECORDS SUMMARY | 2025-09-04 08:13 | XMS_ITS | Encounter Summary ---
Author Organization [facility] Address [facility] [address] [place] [address] Phone Care Team Providers Care Sustainability Coordinator Name Role Phone Gurwinder Meadows MD Primary Care Provider +1- [phone] Queenie Pimentel MD Primary Care Provider Encounter Details Date Type Department Care Team (Late st Contact Info) Description 04/05/2024 Procedure Pass [address] [address] Social History Tobacco Use Types Packs/Day Years [...] on filedocumented in this encounter Care Teams Sustainability Coordinator Relationship Specialty Start Date End Date Gurwinder Meadows MD PCP - General Internal Medicine 08/12/17 08/03/24 Queenie Pimentel MD PCP - General Internal Medicine 08/04/24 documented as of this encounter Additional Source Comments The information contained in this document represents components of the legal health record. It is not the complete legal health record.[facility]
--- OUTSIDE RECORDS SUMMARY | 2025-09-04 08:14 | XMS_ITS | Clinical Summary ---
Author Organization [facility] Address [facility] [employer] [facility] [address] [place] [address] Phone Care Team Providers Care Heating Equipment Installer Name Role Phone Queenie Pimentel MD Primary [...] of right knee 06/29/2017 Osteoarthritis, knee 06/29/2017 Encounters Date Type Department Care Team Description 08/28/2025 3:40 PM EDT Telemedicine [facility] Physical Medicine and Rehabilitation [address] [facility], [address] [place] [id number] Krissy Deal MD Lumbar facet arthropathy (Primary Dx); Lumbar spondylosis from Last 3 Months Family History Medical History Relation Comments Arthritis [...] alcohol) used to drink heavier up until 2015, no detox, no blackouts Education Answer Date [...] 03/07/2025 9:58 AM EDT Plan of Treatment Health Maintenance Due Date Last Done Comments Adult Td,Tdap Booster 1950 LIPID PANEL 1950 HEPATITIS C SCREENING 1967 ZOSTER VACCINES (2 of 3) 05/31/2013 04/05/2013 DEPRESSION SCREENING 08/24/2020 08/24/2019 RSV VACCINE (1 - 1-dose 75+ series) 02/20/2024 INFLUENZA VACCINE (#1) 2025 3, 09/22/2021, 07/15/2020, Additional history exists COVID-19 VACCINE (2024- season) 2025 10/12/2023, 04/23/2021, 03/21/2021 PNEUMOCOCCAL VACCINES [...] this topic Medical Devices Implanted Type Area Editor Continuity And Script Device Identifier Shelf Expiration Date Model / Serial / Lot System Tkr Cruciate Retaining Right I-Total Knee - [id number] Implanted:Qty: 1 on 06/29/2017 by Servando Garcia MD at [facility] STANDARD Right: Knee [employer] 05/21/2018 [id number] / / [id number] Cement Bone Radiopaque Full Dose Simplex P Bx/10ea - [id number] Implanted:Qty: 2 on 06/29/2017 by Servando Garcia MD at [facility] STANDARD Right: Knee [employer] 11/21/2019 6191-1-01 0 / / [id number] Description:mixed with Vanco 2 gm powder Right knee Knee Patella I Total 38mm Knee [id number] Implanted:Qty: 1 on 06/29/2017 by Servando Garcia MD at [facility] STANDARD Right: Knee [employer] 05/21/2018 [id number] 070 / / [id number] System Tkr Cruciate Retaining Left I-Total Knee 26 - [id number] Implanted:Qty: 1 on 08/03/2017 by Servando Garcia MD at [facility] STANDARD Left: Knee [employer] 12/22/2017 [id number] 010 / [id number] / Description:lateral insert A . Medial insert 6mm. Patella 38mm. Knee Patella I Total 38mm Knee 06 - [id number] Implanted:Qty: 1 on 08/03/2017 by Servando Garcia MD at [facility] STANDARD Left: Patella [employer] 06/21/2018 [id number] 070 / / [id number] Cement Bone Simplex P Full Dose Bx/1ea - [id number] Implanted:Qty: 2 on 08/03/2017 by Servando Garcia MD at [facility] Left: Knee [employer] 12/22/2019 6191-1-00 1 / / [id number] Description:mixed with 2gram s vancomycin Insurance * Guarantor: Sagar Uribe Account Type Relation to Patient Date of Phone Billing Address Personal/Family Self [address] [place] [address] [place] [id number] [facility] MEDICARE SUPPLEMENT [facility] MEDICARE SUPPLEMENT MEDICARE PART A & B [facility] MEDICARE SUPPLEMENT [facility] [place] [id number] MEDICARE PART A & B [facility] MEDICARE SUPPLEMENT MEDICARE PART A & B [facility] MEDICARE SUPPLEMENT MEDICARE PART A & B [facility] MEDICARE SUPPLEMENT [facility] MEDICARE SUPPLEMENT MEDICARE PART A & B [facility] MEDICARE SUPPLEMENT [facility] MEDICARE SUPPLEMENT MEDICARE PART A & B Member Subscriber Plan / Payer (Ef fective 2014-Present) Name:Sagar Uribe Member ID:[id number] Relation to Subscriber:Self Name:Sagar Uribe Subscriber ID:[id number] Payer ID:[id number] Group ID:Not on file Type:Medicare Address: [employer] [address] MEDICARE SUPPLEMENT [facility] MEDICARE SUPPLEMENT * Guarantor: Sagar Uribe Account Type Relation to Patient Date of Phone Billing Address Personal/Family Self [address] [place] [id number] MEDICARE PART A & B [facility] MEDICARE SUPPLEMENT * Guarantor: Sagar Uribe Account Type Relation to Patient Date of Phone Billing Address Personal/Family Self [address] [place] [id number] MEDICARE PART A & B [facility] MEDICARE SUPPLEMENT [facility] MEDICARE SUPPLEMENT Advance Directives For more information, please contact: [phone] (9AM - 5PM Ivonne/[facility], Wednesday-Wednesday) Documents on File Type Date Recorded Patient Signals Collection Technician Expl anation Healthcare Proxy 06/29/2017 8:37 AM [...] 2:59 PM 06/30/2017 5:13 PM Care Teams Heating Equipment Installer Relationship Specialty Start Date End Date Queenie Pimentel MD PCP - General Internal Medicine 08/04/24 Additional Source Comments The information contained in this document represents components of the legal health record. It is not the complete legal health record.[facility]
--- OUTSIDE RECORDS SUMMARY | 2025-09-04 08:14 | XMS_ITS | Encounter Summary ---
Author Organization [facility] Address [facility] [email or web address] [facility] [address] [place] [address] Phone Care Team Providers Care Corporate Quality Manager Name Role Phone Gurwinder Meadows MD Primary Care Provider +- [phone] Gurwinder Meadows MD Primary Care Provider + [phone] Queenie Pimentel MD Primary Care Provider +1- [phone] Encounter Details Date Type Department Care Team (Late st Contact Info) Description 08/03/2017 Procedure Pass [facility] Periop 6th floor [address] [place] [address] Social History Tobacco Use Types Packs/Day Years [...] on filedocumented in this encounter Care Teams Corporate Quality Manager Relationship Specialty Start Date End Date Gurwinder Meadows MD PCP - General Internal Medicine 10/09/16 08/11/17 Gurwinder Meadows MD PCP - General Internal Medicine 08/12/17 08/03/24 Queenie Pimentel MD PCP - General Internal Medicine 08/04/24 documented as of this encounter Additional Source Comments The information contained in this document represents components of the legal health record. It is not the complete legal health record.[facility]
--- OUTSIDE RECORDS SUMMARY | 2025-09-04 08:14 | XMS_ITS | Encounter Summary ---
Author Organization [facility] Address [address] [place] [address] [address] [place] [address] Phone Care Team Providers Care Drier Unloader Name Role Phone Gurwinder Meadows MD Primary Care Provider +- [phone] Gurwinder Meadows MD Primary Care Provider + [phone] Queenie Pimentel MD Primary Care Provider +[phone] Encounter Details Date Type Department Care Team (Late st Contact Info) Description 03/04/2017 Procedure Pass [facility] [address] [facility] [address] [place] [address] Social History Tobacco Use Types Packs/Day Years [...] on filedocumented in this encounter Care Teams Drier Unloader Relationship Specialty Start Date End Date Gurwinder [...]
--- OUTSIDE RECORDS SUMMARY | 2025-09-04 08:14 | XMS_ITS | Encounter Summary ---
Author Organization [facility] Address [facility] [employer] [facility] [address] [place] [address] Phone Care Team Providers Care Mail Examiner Name Role Phone Gurwinder Meadows MD Primary Care Provider +1- [phone] Gurwinder Meadows MD Primary Care Provider + [phone] Queenie Pimentel MD Primary Care Provider Encounter Details Date Type Department Care Team (Late st Contact Info) Description 05/07/2017 Procedure Pass [facility] Radiology [address] [place] [address] Social History Tobacco Use Types Packs/Day Years [...] on filedocumented in this encounter Care Teams Mail Examiner Relationship Specialty Start Date End Date Gurwinder Meadows MD PCP - General Internal Medicine 10/09/16 08/11/17 Gurwinder Meadows MD PCP - General Internal Medicine 08/12/17 08/03/24 Queenie Pimentel MD PCP - General Internal Medicine 08/04/24 documented as of this encounter Additional Source Comments The information contained in this document represents components of the legal health record. It is not the complete legal health record.[facility]
--- NOTE | 2025-09-04 08:39 | PFT_ITS ---
Flows: FEV1: 69 % of predicted at 1.99 L FVC: 92 % of predicted at 3.56 L FEV1/FVC: 56 % Bronchodilator response: Absent Volumes: Total lung capacity: 104 % of predicted at 7.14 L Residual volume: 146 % of predicted at 3.81 L Slow vital capacity: 82 % of predicted at 3.33 L Expiratory reserve volume: 69 % of predicted at 0.81 L Diffusion capacity: Normal Impression: Moderate obstructive ventilatory defect with no bronchodilator response. Increased residual volume suggests air trapping. MTDD
[2025-09-04 09:16] VITALS: PULSE 82; O2SAT 93
== END 2025-09-04 08:08 | disposition home or self-care (01) ==
LOC: HO.RESP 08:07
PROVIDERS: PCP Physician Assistant; Visit Provider Hospitalist
DX: J41.8 Mixed simple and mucopurulent chronic bronchitis (principal); Z87.891 Personal history of nicotine dependence
CPT/HCPCS: 94060; 94640; 94727; 94729

== ENCOUNTER → 2025-09-04 08:39 | Outpatient (BNV) | payer MEDICARE, SELFPAY | PROVIDERS: PCP Physician Assistant; Visit Provider Internal Medicine Pulmonary Disease | DX: J98.4 Other disorders of lung (principal) | CPT/HCPCS: 94060; 94727; 94729 ==

== ENCOUNTER 2025-10-22 10:06 | Outpatient (AMB) | payer MEDICARE, SELFPAY ==
--- NOTE | 2025-10-22 10:07 | A.OFFVIS_ITS ---
Vital Signs 10/22/25 10:08 Height 5 ft 9.45 in Weight 201 lb 11.567 oz BMI 29.4 BP 110/60 Blood Pressure Location Lt brachial Position Sitting Pulse 116 H Pulse Source Pulse Oximeter Pulse Oximetry (%) 94 Oxygen Delivery Method Room Air Intake Visit Reasons: Dyspnea/PFT results Circulating Nurse Required: No Accompanied by: Son Allergies No Known Allergies Allergy (Verified 10/22/25 10:11) HPI Comments Details: He is a 75-year-old gentleman with known history of cardiomyopathy, dementia and chronic cough. The patient did have a workup at [facility]. He did undergo a cardiopulmonary exercise tolerance test in 2024. It demonstrated that indeed his exercise limitations were primarily due to a pulmonary origin. His respiratory reserve was decreased. He also has spirometry demonstrating a moderate obstruction based on the spirometry although I do not have the results to review. I do not see any formal pulmonary function studies available. Right now she is not using any inhalers. He denies needing any inhalers either. He is not interested in pursuing any prescription inhalers at this time. He does have a cough which was times productive in nature and sometimes difficult to expectorate. He did have a CT scan of the chest sometime done in 2023 which I personally reviewed at [facility]. It appears he does have some degree of mild emphysema. Evidence of chronic bronchitis. In addition to that he did have some air-fluid level within the esophagus suggesting the possibility of reflux and bringing up the question of micro aspirations. Therefore we did talk about the reflux diet and making sure that he sleeps elevated. As far as his chest congestion in likely chronic bronchitis the patient will benefit from a an Acapella valve for CPT. At this point will hold off any inhalers. Will plan to do formal pulmonary function studies and follow-up in the fall of 2024. If any issues arise he will call for further recommendations. 10/22/2025 the patient is here for pulmonary follow-up visit. Overall the patient is doing well. Denies any respiratory complaints. He has been using the Acapella valve and it has been helpful. We did talk about the importance of exercise in order to continue to improve his respiratory capacity. He did undergo pulmonary function studies which we personally reviewed. The patient does have a moderate obstruction consistent moderate COPD and also significant air trapping. At this point the patient does not feel the need to use any inhalers. I did explain to him that even the future if he does develop any respiratory infections it may result in worsening of the obstruction and not up when he may need an inhaler. The patient is agreeable to calling if he develops any respiratory complaints so we can start him on therapy. For now though the patient is doing well. No further studies warranted. He will continue to use the Acapella valve as prescribed and he will get a flu shot and also an RSV vaccine. The patient will return back in the fall if any issues arise she can always call for further recommendations. [facility] Medical History (Updated 08/16/25 @ 08:13 by Lee Ann Benavidez PA-C) Cardiomyopathy COPD (chronic obstructive pulmonary disease) Dyspnea High blood pressure Family History Father Asthma High blood pressure Diabetes Cancer Mother Cancer Social History Housing: [facility] Alcohol intake: current Patient Tobacco Use Status: Former Tobacco user e-Cigarette/Vaping Use: Never Used Second Hand Smoke Exposure: No service: No Current occupational status: retired Current occupational exposures/hazards: No Cognitive needs: No Hearing needs: Yes Vision needs: No Review of Systems Const Denies fever(s) Eyes Reports no additional complaints ENT Reports no additional complaints Card Reports as per HPI and Reports dyspnea on exertion Resp Reports dyspnea on exertion GI Reports no additional complaints Musc Reports myalgias Skin/Breast Denies rash Neuro Reports no additional complaints Reymundo/Lymph Reports no additional complaints Aller/Immun Reports no additional complaints Physical Exam Vital Signs: Last Vital Signs Pulse 116 H 10/22/25 10:08 BP 110/60 10/22/25 10:08 Pulse Ox 94 10/22/25 10:08 Oxygen Delivery Method Room Air 10/22/25 10:08 BMI result Body Mass Index 29.4 Const General: comfortable HEENT Head: Yes normocephalic Neck Neck: Yes supple Chest Chest palpation & inspection: normal inspection of the chest Resp Effort & Inspection: normal respiratory effort Auscultation: diminished lung sounds Cardio Heart sounds: S1 normal heart sound present and S2 normal heart sound present GI Palpation (GI): Soft to palpation Skin General skin exam: no rashes or lesions noted Extrem General: Yes no clubbing, cyanosis or edema Assessment & Plan Assessment & Plan (1) Dyspnea: Code(s): R06.00 - Dyspnea, unspecified Category: Medical Qualifiers: Dyspnea type: dyspnea on exertion Qualified Code(s): R06.09 - Other forms of dyspnea (2) COPD (chronic obstructive pulmonary disease): Code(s): J44.9 - Chronic obstructive pulmonary disease, unspecified Category: Medical Qualifiers: COPD type: chronic bronchitis Chronic bronchitis type: mixed simple and mucopurulent Qualified Code(s): J41.8 - Mixed simple and mucopurulent chronic bronchitis (3) Cardiomyopathy: Code(s): I42.9 - Cardiomyopathy, unspecified Category: Medical Qualifiers: Cardiomyopathy type: unspecified Qualified Code(s): I42.9 - Cardiomyopathy, unspecified Plan Acapella valve for CPT Consider DAYANA continue exercise routine F/U 10-12 months Coding Level of Care Code Est Pt Level 4 (24436) Diagnoses Dyspnea on exertion R06.09 Dyspnea type: dyspnea on exertion Mixed simple and mucopurulent chronic bronchitis J41.8 COPD type: chronic bronchitis Chronic bronchitis type: mixed simple and mucopurulent Cardiomyopathy, unspecified type I42.9 Cardiomyopathy type: unspecified Time Spent (min) 16
[2025-10-22 10:08] VITALS: BP 110/60; PULSE 116; O2SAT 94; BMI 29.4
--- OUTSIDE RECORDS SUMMARY | 2025-10-22 12:23 | XMS_ITS | Encounter Summary ---
Author Organization [facility] Address [address] [place] [address] [address] [place] [address] Phone Care Team Providers Care Podiatric Physician Name Role Phone Gurwinder Meadows MD Primary Care Provider +- [phone] Gurwinder Meadows MD Primary Care Provider + [phone] Queenie Pimentel MD Primary Care Provider [phone] Encounter Details Date Type Department Care Team (Late st Contact Info) Description 03/04/2017 Procedure Pass [facility] [address] [facility] [address] [place] [address] Social History Tobacco Use Types Packs/Day Years [...] on filedocumented in this encounter Care Teams Podiatric Physician Relationship Specialty Start Date End Date Gurwinder Meadows MD PCP - General Internal Medicine 10/09/16 08/11/17 Gurwinder Meadows MD PCP - General Internal Medicine 08/12/17 08/03/24 Queenie Pimentel MD PCP - General Internal Medicine 08/04/24 documented as of this encounter Additional Source Comments The information contained in this document represents components of the legal health record. It is not the complete legal health record.[facility]
--- OUTSIDE RECORDS SUMMARY | 2025-10-22 12:23 | XMS_ITS | Encounter Summary ---
Author Organization [facility] Address [facility] [address] [place] [address] Phone Care Team Providers Care Museum Or Zoo Director Name Role Phone Queenie Pimentel MD Primary Care Provider [phone] Encounter Details Date Type Department Care Team (Late st Contact Info) Description 09/21/2025 Orders Only [facility] Physical Medicine & Rehabilitation - [facility] [address] [place] [address] Krissy Deal MD [address] [place] [id number] [email or web address] Lumbar facet arthropathy (Primary Dx) Social History Tobacco Use Types Packs/Day Years [...] as of this encounter Plan of Treatment Scheduled Orders Name Type Priority Associated Diagnoses Orde r Schedule FL Fluoroscopy Imaging Routine Lumbar facet arthropathy Expected: 09/21/2025, Expires: 09/21/2026 documented as of this encounter Visit Diagnoses Diagnosis Lumbar facet arthropathy- Primary Spondylosis of unspecified site without mention of myelopathy documented in this encounter Care Teams Museum Or Zoo Director Relationship Specialty Start Date End Date Queenie Pimentel MD PCP - General Internal Medicine 08/04/24 documented as of this encounter Additional Source Comments The information contained in this document represents components of the legal health record. It is not the complete legal health record.[facility]
--- OUTSIDE RECORDS SUMMARY | 2025-10-22 12:23 | XMS_ITS | Clinical Summary ---
Author Organization [facility] Address [facility] [address] [place] [address] Phone Care Team Providers Care Gauge And Weigh Machine Operator Name Role Phone Queenie Pimentel MD Primary [...] Encounters Date Type Department Care Team Description 09/21/2025 Orders Only [facility] [employer] [address] [place] [address] Krissy Deal MD Lumbar facet arthropathy (Primary Dx) 09/20/2025 Telephone [facility] Log in [facility] [address] [place] [address] Krissy Deal MD 08/28/2025 3:40 PM EDT Telemedicine [facility] [address] [place] [address], [address] [place] [address] Krissy Deal MD Lumbar facet arthropathy (Primary [...] 75+ series) 02/20/2024 INFLUENZA VACCINE (#1) 2025 , 09/22/2021, 07/15/2020, Additional history exists COVID-19 VACCINE [...] this topic Medical Devices Implanted Type Area Dumper [employer] Device Identifier Shelf Expiration Date Model / Serial / Lot System Tkr Cruciate Retaining Right I-Total Knee 26 - [id number] Implanted:Qty: 1 on 06/29/2017 by Servando Garcia MD at [facility] STANDARD Right: Knee [employer] 05/21/2018 [id number] / / [id number] Cement Bone Radiopaque Full Dose Simplex P Bx/10ea - [id number] Implanted:Qty: 2 on 06/29/2017 by Servando Garcia MD at [facility] STANDARD Right: Knee [employer] 11/21/2019 6191-1-01 0 / / [id number] Description:mixed with Vanco 2 gm powder Right knee Knee Patella I Total 38mm Knee 06 - [id number] Implanted:Qty: 1 on 06/29/2017 by Servando Garcia MD at [facility] STANDARD Right: Knee [employer] 05/21/2018 [id number] / / [id number] System Tkr Cruciate Retaining Left I-Total Knee 26 - [id number] Implanted:Qty: 1 on 08/03/2017 by Servando Garcia MD at [facility] STANDARD Left: Knee [employer] 12/22/2017 [id number] / [id number] / Description:lateral insert A . Medial insert 6mm. Patella 38mm. Knee Patella I Total 38mm Knee 06 - [id number] Implanted:Qty: 1 on 08/03/2017 by Servando Garcia MD at [facility] STANDARD Left: Patella [employer] 06/21/2018 [id number] / / [id number] Cement Bone Simplex P Full Dose Bx/1ea - [id number] Implanted:Qty: 2 on 08/03/2017 by Servando Garcia MD at [facility] Left: Knee [employer] 12/22/2019 6191-1-00 1 / / [id number] Description:mixed with 2gram s vancomycin Insurance MEDICARE PART A & B [facility] MEDICARE SUPPLEMENT [facility] MEDICARE SUPPLEMENT MEDICARE PART A & B [facility] MEDICARE SUPPLEMENT [facility] MEDICARE SUPPLEMENT MEDICARE PART A & B [facility] MEDICARE SUPPLEMENT MEDICARE PART A & B MEDICARE SUPPLEMENT [address] [place] [address] MEDICARE PART A & B [id number] [place] [address] MEDICARE SUPPLEMENT [facility] MEDICARE SUPPLEMENT MEDICARE PART A & B [facility] MEDICARE SUPPLEMENT [facility] SUPPLE[facility] MEDICARE PART A & B [facility] MEDICARE SUPPLEMENT [facility] MEDICARE SUPPLEMENT MEDICARE PART A & B Member Subscriber Plan / Payer (Ef fective 2014-Present) Name:Sagar Uribe Marty Member ID:[id number] Relation to Subscriber:Self Name:Sagar Uribe Subscriber ID:[id number] Payer ID:[id number] Group ID:Not on file Type:Medicare Address: [employer] [address] MEDICARE SUPPLEMENT [facility] Address: [facility] [address] [phone] MEDICARE PART A & B [facility] MEDICARE SUPPLEMENT [employer] MEDICARE SUPPLEMENT Advance Directives For more information, please contact: [phone] (9AM - 5PM Ivonne/[facility], Wednesday-Wednesday) Documents on File Type Date Recorded Patient [employer] Sales Representative Expl anation Healthcare Proxy 06/29/2017 8:37 AM [...] 2:59 PM 06/30/2017 5:13 PM Care Teams Gauge And Weigh Machine Operator Relationship Specialty Start Date End Date Queenie Pimentel MD PCP - General Internal Medicine 08/04/24 Additional Source Comments The information contained in this document represents components of the legal health record. It is not the complete legal health record.[facility]
--- OUTSIDE RECORDS SUMMARY | 2025-10-22 12:23 | XMS_ITS | Encounter Summary ---
Author Organization [facility] Address [facility] [address] [place] [address] Phone Care Team Providers Care Coremaking Machine Operator Name Role Phone Queenie Pimentel MD Primary Care Provider Encounter Details Date Type Department Care Team (Late st Contact Info) Description 09/20/2025 Telephone [facility] Log in [address] [place] [address] Krissy Deal MD [address] [place] [id number] [email or web address] Social History Tobacco Use Types Packs/Day Years [...] on filedocumented in this encounter Care Teams Coremaking Machine Operator Relationship Specialty Start Date End Date Queenie Pimentel MD PCP - General Internal Medicine 08/04/24 documented as of this encounter Additional Source Comments The information contained in this document represents components of the legal health record. It is not the complete legal health record.[facility]
--- OUTSIDE RECORDS SUMMARY | 2025-10-22 12:23 | XMS_ITS | Encounter Summary ---
Author Organization [facility] Address [facility] [address] [place] [address] Phone Care Team Providers Care Phonograph Mechanic Name Role Phone Gurwinder Meadows MD Primary Care Provider [phone]- [phone] Queenie Pimentel MD Primary Care Provider Encounter Details Date Type Department Care Team (Late st Contact Info) Description 04/05/2024 Procedure Pass [address] [address] Social History Tobacco Use Types Packs/Day Years [...] on filedocumented in this encounter Care Teams Phonograph Mechanic Relationship Specialty Start Date End Date Gurwinder Meadows MD PCP - General Internal Medicine 08/12/17 08/03/24 Queenie Pimentel MD PCP - General Internal Medicine 08/04/24 documented as of this encounter Additional Source Comments The information contained in this document represents components of the legal health record. It is not the complete legal health record.[facility]
--- OUTSIDE RECORDS SUMMARY | 2025-10-22 12:23 | XMS_ITS | Encounter Summary ---
Author Organization [facility] Address [facility] [address] [place] [address] Phone Care Team Providers Care Product Management Intern Name Role Phone Gurwinder Meadows MD Primary Care Provider +1- [phone] Gurwinder Meadows MD Primary Care Provider + [phone] Queenie Pimentel MD Primary Care Provider Encounter Details Date Type Department Care Team (Late st Contact Info) Description 05/07/2017 Procedure Pass [facility] Radiology [address] [place] [address] Social History Tobacco Use Types Packs/Day Years [...] on filedocumented in this encounter Care Teams Product Management Intern Relationship Specialty Start Date End Date Gurwinder Meadows MD PCP - General Internal Medicine 10/09/16 08/11/17 Gurwinder Meadows MD PCP - General Internal Medicine 08/12/17 08/03/24 Queenie Pimentel MD PCP - General Internal Medicine 08/04/24 documented as of this encounter Additional Source Comments The information contained in this document represents components of the legal health record. It is not the complete legal health record.[facility]
--- OUTSIDE RECORDS SUMMARY | 2025-10-22 12:23 | XMS_ITS | Encounter Summary ---
Author Organization [facility] Address [facility] [employer] [facility] [address] [place] [address] Phone Care Team Providers Care Baseball Scout Name Role Phone Gurwinder Meadows MD Primary Care Provider +- [phone] Gurwinder Meadows MD Primary Care Provider + [phone] Queenie Pimentel MD Primary Care Provider +1- [phone] Encounter Details Date Type Department Care Team (Late st Contact Info) Description 06/29/2017 Procedure Pass [facility] Periop 6th floor [address] [place] [address] Social History Tobacco Use Types Packs/Day Years [...] on filedocumented in this encounter Care Teams Baseball Scout Relationship Specialty Start Date End Date Gurwinder [...] is not the complete legal health record.[facility]
--- OUTSIDE RECORDS SUMMARY | 2025-10-22 12:23 | XMS_ITS | Encounter Summary ---
Author Organization [facility] Address [facility] [address] [place] [address] Phone Care Team Providers Care Gas Pump Attendant Name Role Phone Gurwinder Meadows MD Primary Care Provider +- [phone] Gurwinder Meadows MD Primary Care Provider + [phone] Queenie Pimentel MD Primary Care Provider [phone]- [phone] Encounter Details Date Type Department Care Team (Late st Contact Info) Description 08/03/2017 Procedure Pass [facility] Periop 6th floor [address] [place] [address] Social History Tobacco Use Types Packs/Day Years [...] on filedocumented in this encounter Care Teams Gas Pump Attendant Relationship Specialty Start Date End Date Gurwinder Meadows MD PCP - General Internal Medicine 10/09/16 08/11/17 Gurwinder Meadows MD PCP - General Internal Medicine 08/12/17 08/03/24 Queenie Pimentel MD PCP - General Internal Medicine 08/04/24 documented as of this encounter Additional Source Comments The information contained in this document represents components of the legal health record. It is not the complete legal health record.[facility]
== END 2025-10-22 10:30 | disposition home or self-care (01) ==
LOC: HO.HPS 10:07
PROVIDERS: PCP Physician Assistant; Visit Provider Hospitalist
DX: R06.09 Other forms of dyspnea (principal); J41.8 Mixed simple and mucopurulent chronic bronchitis; I42.9 Cardiomyopathy, unspecified
CPT/HCPCS: 99214

== ENCOUNTER → 2025-10-22 10:06 | Outpatient (BNVA) | payer MEDICARE, SELFPAY | PROVIDERS: PCP Physician Assistant; Visit Provider Hospitalist | DX: R06.09 Other forms of dyspnea (principal); J41.8 Mixed simple and mucopurulent chronic bronchitis; I42.9 Cardiomyopathy, unspecified; Z87.891 Personal history of nicotine dependence | CPT/HCPCS: 99212 ==